=== PATIENT | female | born 1945 | race Caucasian/White ===

== ENCOUNTER 2019-09-17 17:46 | Emergency (ER) | payer MEDICARE, SELFPAY ==
--- NOTE | ~2019-09-17 | XR_ITS ---
EXAMINATION: XR chest 2V DATE: 09/17/2019 19:01 INDICATION: Cough, shortness of breath and wheezing TECHNIQUE: PA and lateral views of the chest were obtained. COMPARISON: Chest radiograph dated 02/04/[address] dated 02/11/2018 FINDINGS: The lungs remain clear with no focal airspace opacities, pulmonary edema, pleural effusion or pneumot horax. The cardiomediastinal silhouette is normal. Thoracic kyphosis with severe spondylosis and assembly department supervisor mariela anterior wedging of a couple mid thoracic vertebral bodies. Cholecystectomy clips in right upper quadrant. IMPRESSION: 1. No acute cardiopulmonary disease. Reviewed, dictated and finalized at location A.
[2019-09-17 18:10] VITALS: BP 140/62; PULSE 86; RESP 18; TEMP 37.8; O2SAT 99
--- NOTE | 2019-09-17 18:42 | ED.GENADULT ---
HPI - General Adult General Chief complaint: Upper Respiratory Infection <AIDAN Carrillo - Last Filed: 09/25/19 01:54> Stated complaint: wheezing/cough <AIDAN Carrillo - Last Filed: 09/25/19 01:54> Time Seen by Provider: 09/17/19 18:42 <AIDAN Carrillo - Last Filed: 09/25/19 01:54> Source: patient and RN notes reviewed <AIDAN Carrillo - Last Filed: 09/25/19 01:54> Mode of arrival: ambulatory <AIDAN Carrillo - Last Filed: 09/25/19 01:54> Limitations: no limitations <AIDAN Carrillo - Last Filed: 09/25/19 01:54> History of Present Illness HPI narrative: 74-year-old female presents with complains of wheezing, dry cough, and chest congestion for the past 14 days. Albuterol inhaler without relief. Constant dry cough. History of Pneumonia. No rhinorrhea. Nasal congestion. No high fevers, drooling, neck or throat swelling. No chest pain or shortness of breath. The patient reports she have not been diagnosed with COVID-19. The patient reports she is not waiting for the results of a COVID-19 lab test. The patient reports she do not have fever, chills, weakness, fatigue, or myalgia. The patient reports she do not have a new or worsening cough or shortness of breath. Denies chest pain. The patient reports she do not have any rhinorrhea, sore throat, nausea, vomiting, abdominal pain, and diarrhea. Tolerating po intake well. Denies recent traveling. Denies concerns for COVID-19 or exposures been home since [id number] order once lifted has started golfing with mask and social distancing, essential household needs, and return home. At this time, patient is not suspected of having COVID-19. Some parts of this dictation were generated by voice recognition software and may contain typographical and/or grammatical inaccuracies. <AIDAN Carrillo - Last Filed: 09/25/19 01:54> Related Data Home medications: Home Medications Medication Instructions Recorded Confirmed omeprazole 20 mg capsule,delayed 20 mg PO DAILY 08/07/19 release Caltrate with Vitamin D3 09/17/19 Glucosamine Chondroitin 09/17/19 L-Lysine 09/17/19 One-A-Day Women's 50 Plus 09/17/19 cyanocobalamin (vitamin B-12) 09/17/19 omega 5-apn-eyn-fish oil [Fish Oil] cap PO 09/17/19 <AIDAN Carrillo - Last Filed: 09/25/19 01:54> Allergies/adverse reactions: Allergies Allergy/AdvReac Type Severity Reaction Status Date / Time JERI Inhibitors Allergy Unknown unknown Verified 08/07/19 08:55 Penicillins Allergy Unknown hives Verified 08/07/19 08:55 <AIDAN Carrillo - Last Filed: 09/25/19 01:54> Review of Systems Review of Systems: Narrative: CONSTITUTIONAL: Denies fever, sweats, chills, fatigue. EYES: Denies visual changes, redness, discharge. ENT: Complains of congestion. Denies rhinorrhea, sore throat, otalgia. CARDIOVASCULAR: Denies chest pain, palpitations, edema. RESPIRATORY: Denies dyspnea. Complains of dry cough, wheezing. GASTROINTESTINAL: Denies abdominal pain, nausea, vomiting, diarrhea. GENITOURINARY: Denies dysuria, hematuria, abnormal discharge. SKIN: Denies rash or itching. MUSCULOSKELETAL: Denies acute back pain, joint pain, or myalgia. NEUROLOGIC: Denies numbness or focal weakness. PSYCHIATRIC: Denies anxiety or depression. All other systems reviewed & are unremarkable except as noted in HPI and below. <AIDAN Carrillo - Last Filed: 09/25/19 01:54> [facility] Past Medical History Medical History: Medical History (Updated 09/18/19 @ 00:01 by Clarissa Boo) Cataract Chronic GERD Dyslipidemia Essential (primary) hypertension Fracture of foot bone, left, closed [place] (obstructive sleep apnea) Osteopenia Tear of meniscus of left knee Tinnitus <AIDAN Carrillo - Last Filed: 09/25/19 01:54> Surgical History Surgical History: Surgical History (Updated 09/17/19 @ 19:04 by Kashif
[2019-09-17] MEDS: predniSONE 20 MG TABLET 60 MG PO (19:04)
[2019-09-17] MEDS: IPRATROPIUM BR 0.02% INH SOLN 0.5 MG/2.5 ML VIAL INHALATION (19:05)
[2019-09-17] MEDS: ALBUTEROL SULFATE NEB 2.5 MG/3 ML INH INHALATION (19:05)
--- NOTE | 2019-09-17 19:55 | PC.NURSE ---
unable to scan medications. given second resp. tx. stated tolerated initial without difficulty.
[2019-09-17 20:43] VITALS: PULSE 81; RESP 16; O2SAT 96
== END 2019-09-17 20:43 | disposition home or self-care (01) ==
PROVIDERS: Emergency Provider Nurse Practitioner Family; PCP Family Medicine
DX: J45.21 Mild intermittent asthma with (acute) exacerbation (principal); K21.9 Gastro-esophageal reflux disease without esophagitis; E78.5 Hyperlipidemia, unspecified; I10 Essential (primary) hypertension; G47.33 Obstructive sleep apnea (adult) (pediatric); M85.80 Other specified disorders of bone density and structure, unspecified site
CPT/HCPCS: 71046; 94640; 99213; G0463; J7512

== ENCOUNTER 2020-09-26 09:52 | Outpatient (CLI) | payer MEDICARE, SELFPAY ==
--- NOTE | ~2020-09-26 | XR_ITS ---
XR knee RT 2V 09/26/2020 10:06 Indication: Right knee pain Procedure: 4 views right knee Comparison: No prior studies for comparison. Findings: Mild osteoarthritis of the right knee. Prominent tibial tuberosity. No fracture or traumati c malalignment. No significant joint effusion. Impression: 1: Mild osteoarthritis of the right knee. Reviewed, dictated and finalized at location A. Impression: 1: Mild osteoarthritis of the right knee.
== END 2020-09-26 09:53 | disposition home or self-care (01) ==
PROVIDERS: PCP Family Medicine; Visit Provider Family Medicine
DX: M25.561 Pain in right knee (principal); M17.11 Unilateral primary osteoarthritis, right knee
CPT/HCPCS: 73560

== ENCOUNTER 2021-06-17 10:53 | Emergency (ER) | payer MEDICARE, SELFPAY ==
--- NOTE | ~2021-06-17 | XR_ITS ---
EXAMINATION: XR chest 2V DATE: 06/17/2021 12:56 INDICATION: Back pain. TECHNIQUE: Frontal and lateral views of the chest were obtained. COMPARISON: Chest 2 views 09/17/2019 FINDINGS: There is mild atelectasis at right lung base. No pleural effusion or pneumothorax. The hear t size is normal. Surgical clips in the right upper quadrant are likely from cholecystectomy. There a re 2 chronic compression fractures in mid thoracic spine with kyphosis. There is severe thoracic spon dylosis. IMPRESSION: 1. Mild atelectasis at right lung base. Reviewed, dictated and finalized at location A. 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
[2021-06-17 11:27] VITALS: BP 134/75; PULSE 85; RESP 20; TEMP 36.8; O2SAT 100
--- NOTE | 2021-06-17 12:38 | ED.GENADULT ---
HPI - General Adult General Chief complaint: Back Pain/Injury Stated complaint: Left back pain Source: patient Mode of arrival: ambulatory Limitations: no limitations History of Present Illness HPI narrative: Patient presents for evaluation of back pain since Saturday of this week. She cannot identify any precipitating cause or injury. Pain is constant, throbbing, rated 9 out of 10 in severity. Pain radiates into the chest. She feels short of breath. Denies cough. She has underlying history of hypertension and hyperlipidemia. She does not smoke. No personal or family history of VTE. She tried taking ibuprofen and tylenol but these did not help. She also tried applying ice but that did not help either. No personal history of [place] or CVA. Related Data Home Medications Medication Instructions Recorded Confirmed Caltrate with Vitamin D3 09/17/19 06/09/21 Glucosamine Chondroitin 09/17/19 06/09/21 L-Lysine 09/17/19 06/09/21 One-A-Day Women's 50 Plus 09/17/19 06/09/21 cyanocobalamin (vitamin B-12) 09/17/19 06/09/21 multivitamin 1 tablet PO DAILY 12/30/20 06/09/21 valsartan 06/17/21 06/17/21 Allergies Allergy/AdvReac Type Severity Reaction Status Date / Time JERI Inhibitors Allergy Unknown unknown Verified 06/17/21 11:24 Penicillins Allergy Unknown hives Verified 06/17/21 11:24 Review of Systems Review of Systems: CONSTITUTIONAL: Denies fever, chills, or sweats. EYES: Denies visual changes, redness, or discharge. ENT: Denies rhinorrhea, congestion, sore throat, or otalgia. CARDIOVASCULAR: Reports chest pain. Denies palpitations, or edema. RESPIRATORY: Reports shortness of breath. Denies cough GASTROINTESTINAL: Denies abdominal pain, nausea, vomiting, or diarrhea. GENITOURINARY: Denies dysuria or hematuria. SKIN: Denies rash or itching. MUSCULOSKELETAL: Reports back pain. Denies joint pain, or myalgia. NEUROLOGIC: Denies headache, numbness, dizziness, or weakness. PSYCHIATRIC: Denies anxiety or depression. [facility] Past Medical History Medical History Cataract Chronic GERD Colon polyp Diverticulosis Dyslipidemia Essential (primary) hypertension Fracture of foot bone, left, closed Hyperlipidemia IFG (impaired fasting glucose) Left knee DJD Obesity [place] (obstructive sleep apnea) Osteopenia Right knee DJD Tear of meniscus of left knee Tinnitus Surgical History Surgical History History of eye surgery cataract surgery and eyelid lift History of knee surgery LT meniscus tear repair Family History Family History Mother Hypertension Family history of Alzheimer's disease Family history of dementia History of stroke Sibling Family history of kidney disease Carcinoma of colon Family history of coronary artery disease Family history of renal failure History of colon cancer Father Family history of lung cancer Social History Social History Social History: Second hand tobacco smoke exposure: Yes (over 30 years ago) Alcohol intake: current Drinks per week: 3 Alcohol use details: Socially Substance use: never Substance use type: does not use Gender identity (if verbalized by the patient): Female Sexual Orientation (if Verbalized by the Patient): Straight or Heterosexual Exam Narrative: GENERAL: Well-appearing, well-nourished, and in no acute distress. HEAD: Normocephalic, atraumatic. EYES: PERRLA and EOMI. ENT: Nares clear, no rhinorrhea or epistaxis. Mucous membranes moist. Oropharynx without tonsillar hypertrophy exudate or other lesions. Bilateral TMs pearly magdaleno nonbulging NECK: Supple. No adenopathy or masses. No carotid bruits or JVD CHEST: Clear to auscultation. No respiratory distress. No wheezes rales or rhonchi
--- NOTE | 2021-06-17 12:39 | ECG_ITS ---
Measurements Intervals [place] Rate: 77 P: 57 TX: 182 QRS: 18 QRSD: 96 T: 38 QT: 378 QTc: 428 Interpretive Statements SINUS RHYTHM NORMAL ECG NO PREVIOUS ECG AVAILABLE FOR COMPARISON Electronically Signed On 06-19-2021 13:46:03 RN NEONATAL by Vasile Baez M.D.
[2021-06-17] MEDS: IBUPROFEN 600 MG TABLET PO (12:59)
== END 2021-06-17 13:34 | disposition home or self-care (01) ==
PROVIDERS: Emergency Provider Nurse Practitioner; PCP Family Medicine
DX: M48.54XA Collapsed vertebra, not elsewhere classified, thoracic region, initial encounter for fracture (principal); E78.5 Hyperlipidemia, unspecified; I10 Essential (primary) hypertension; G47.33 Obstructive sleep apnea (adult) (pediatric); M85.80 Other specified disorders of bone density and structure, unspecified site; K21.9 Gastro-esophageal reflux disease without esophagitis; M17.0 Bilateral primary osteoarthritis of knee
CPT/HCPCS: 71046; 93005; 99213; A9270; G0463

== ENCOUNTER 2021-07-04 08:40 | Outpatient (CLI) | payer MEDICARE, SELFPAY ==
--- NOTE | ~2021-07-04 | MR_ITS ---
EXAMINATION: MR thoracic spine wo con EXAM DATE: 07/04/2021 09:59 INDICATION: M54.6 - Pain in thoracic spine . TECHNIQUE: Multi-sequential, multiplanar MR images of the thoracic spine were obtained without contra st. Sagittal T1, T2, T2 fat saturation, axial T2 weighted images reviewed. There is no prior study for comparison. FINDINGS: There is mild to moderate mid thoracic disc disease, otherwise mild thoracic disc disease. Large lower thoracic vertebral body hemangiomata. The mid thoracic endplate degenerative signal ponce e. The spinal cord signal intensity and intrinsic morphology is normal. Thoracic central canal and ne ural foramen are widely patent. There is mild diffuse thoracic facet arthropathy. Paraspinal soft tis rosas is unremarkable. IMPRESSION: 1. Mild to moderate mid thoracic disc disease. 2. Mild diffuse thoracic facet arthropathy. Reviewed, dictated and finalized at location G.
== END 2021-07-04 08:41 | disposition home or self-care (01) ==
LOC: ANHIMG 08:55
PROVIDERS: PCP Family Medicine; Visit Provider Physician Assistant
DX: M54.6 Pain in thoracic spine (principal); M51.84 Other intervertebral disc disorders, thoracic region; M12.88 Other specific arthropathies, not elsewhere classified, other specified site
CPT/HCPCS: 72146

== ENCOUNTER 2022-01-17 07:55 | Outpatient (CLI) | payer MEDICARE, SELFPAY ==
[2022-01-17 09:55] LABS: Appearance Urine Clear (Clear); Bilirubin Urine Negative (Negative); Blood Urine Negative (Negative); Color Urine Yellow (Yellow); Glucose Urine UA Negative (Negative); Ketones Urine Negative (Negative); Leukocyte Esterase Ur 1+ LEU/UL (Negative); Nitrate Urine Negative (Negative); Protein Urine Negative (Negative); Specific Grav Ur 1.025 (1.001-1.035); Urobilinogen Urine 0.2 mg/dL (<2.0)
[2022-01-17 09:56] LABS: Basophils Percent Auto 0.1 % (0.2-1.2); Hematocrit 38.7 % (37.0-47.0); Hemoglobin 12.6 g/dL (12.0-15.0); Immature Granulocyte Absolute 0.15 K/mm3 (0.00-0.031); Immature Granulocyte Percent A 0.7 % (0-0.5); Lymphocytes Percent Auto 9.9 % (18.3-44.2); Mean Corpuscular HGB Conc 32.6 g/dl (32-36); Mean Corpuscular Hemoglobin 30.1 pg (26-34); Mean Corpuscular Volume 92.6 fl (80-100); Mean Platelet Volume 9.2 fl (7.4-10.4); Monocytes Absolute Auto 1.4 K/mm3 (0.1-0.6); Monocytes Percent Auto 7.1 % (2.6-8.5); Neutrophils Absolute Auto 16.5 K/mm3 (1.3-6.7); Neutrophils Percent Auto 82.2 % (45.5-73.1); Platelet Count Result 490 k/mm3 (150-375); Red Blood Count 4.18 M/mm3 (4.2-5.4); Red Cell Distribution Width 13.9 % (11.5-14.5); White Blood Count 20.1 K/mm3 (4.5-10.0)
[2022-01-17 10:03] LABS: Albumin Level 4.3 g/dL (3.5-5.1); Anion Gap 10 mmol/L (8-16); Blood Urea Nitrogen 20 mg/dL (7-17); Carbon Dioxide 24 mmol/L (22-30); Chloride 107 mmol/L (98-107); Estimated Glomerular Filt Rate > 60; Glucose 90 mg/dL (65-110); Potassium 3.7 mmol/L (3.4-5.0); Sodium 141 mmol/L (137-145)
[2022-01-17 10:04] LABS: INR 1.1; Prothrombin Time 13.3 Seconds (11.1-14.7)
[2022-01-17 10:07] LABS: Add Urine Microscopic? YES
[2022-01-17 10:17] LABS: RBC Urine 0-2 /hpf (0-2); Squamous Epithelial Cell Urine Occasional /hpf (Few); WBC Urine 21-30 /hpf
[2022-01-17 13:05] LABS: Urine Cotinine NEGATIVE
== END 2022-01-17 07:56 | disposition home or self-care (01) ==
LOC: ANHSURGERY 08:01
PROVIDERS: PCP Family Medicine; Visit Provider Orthopaedic Surgery
DX: Z01.818 Encounter for other preprocedural examination (principal); M17.12 Unilateral primary osteoarthritis, left knee; Z51.81 Encounter for therapeutic drug level monitoring; Z79.899 Other long term (current) drug therapy
CPT/HCPCS: 80048; 80307; 81001; 82040; 83036; 85025; 85610; 85730; 87081; 87086; 87088

== ENCOUNTER 2022-01-25 10:11 | Outpatient (CLI) | payer MEDICARE, SELFPAY ==
--- NOTE | ~2022-01-25 | XR_ITS ---
XR chest 2V 01/25/2022 11:05 Indication: Surgery clearance. Reflux. Hypertension. Procedure: PA and lateral views of the chest Comparison: Comparison to multiple prior studies sequentially, with oldest reviewed study dated 06/09. Findings: Heart size normal. There is atherosclerosis and ectasia of the thoracic aorta. No focal air space disease, pulmonary edema, pleural effusion or suspected pneumothorax. The lungs are hyperinfla gina which is consistent with, but not diagnostic of chronic obstructive pulmonary disease. Impression: 1: No acute cardiopulmonary disease. Reviewed, dictated and finalized at location A. Impression: 1: No acute cardiopulmonary disease.
[2022-01-25 11:28] LABS: Basophils Absolute Auto 0.1 K/mm3 (0.0-0.1); Basophils Percent Auto 0.7 % (0.2-1.2); Eosinophils Absolute Auto 0.2 K/mm3 (0-0.3); Eosinophils Percent Auto 2.3 % (0-4.4); Hematocrit 39.7 % (37.0-47.0); Hemoglobin 12.7 g/dL (12.0-15.0); Immature Granulocyte Absolute 0.04 K/mm3 (0.00-0.031); Immature Granulocyte Percent A 0.5 % (0-0.5); Lymphocytes Absolute Auto 2.15 K/mm3 (0.9-3.2); Lymphocytes Percent Auto 24.5 % (18.3-44.2); Mean Corpuscular Hemoglobin 29.7 pg (26-34); Mean Corpuscular Volume 92.8 fl (80-100); Mean Platelet Volume 9.2 fl (7.4-10.4); Monocytes Absolute Auto 0.9 K/mm3 (0.1-0.6); Monocytes Percent Auto 10.5 % (2.6-8.5); Neutrophils Absolute Auto 5.4 K/mm3 (1.3-6.7); Neutrophils Percent Auto 61.5 % (45.5-73.1); Platelet Count Result 454 k/mm3 (150-375); Red Blood Count 4.28 M/mm3 (4.2-5.4); White Blood Count 8.8 K/mm3 (4.5-10.0)
[2022-01-25 11:33] LABS: Add Urine Microscopic? YES; Appearance Urine Clear (Clear); Bilirubin Urine Negative (Negative); Blood Urine Negative (Negative); Color Urine Yellow (Yellow); Glucose Urine UA Negative (Negative); Ketones Urine Negative (Negative); Leukocyte Esterase Ur 1+ LEU/UL (Negative); Mucus Urine Rare /lpf; Nitrate Urine Negative (Negative); Protein Urine Negative (Negative); RBC Urine 0-2 /hpf (0-2); Specific Grav Ur 1.012 (1.001-1.035); Squamous Epithelial Cell Urine Rare /hpf (Few); Urobilinogen Urine Negative mg/dL (<2.0)
== END 2022-01-25 10:12 | disposition home or self-care (01) ==
PROVIDERS: PCP Family Medicine; Visit Provider Physician Assistant
DX: Z01.818 Encounter for other preprocedural examination (principal); N39.0 Urinary tract infection, site not specified; D72.829 Elevated white blood cell count, unspecified
CPT/HCPCS: 36415; 71046; 81001; 85025; 87086; 87088; 87147

== ENCOUNTER 2022-01-31 00:21 | Day surgery (SDC) | payer MEDICARE, SELFPAY ==
[2022-01-17 08:09] VITALS: BMI 33.3
--- NOTE | 2022-01-17 08:36 | PC.NURSE ---
Addendum entered by Araseli Puri RN 01/17/22 08:46: SURGERY AT 0800 Original Note: Report to the Outpatient Waiting Room, entrance under the green pavilion located off [address], at time _0600 on date ___01/31/22____. OR Time: __0730 . Time changes happen often and if your time is changed the preop area will call you the afternoon before. - You and your visitor will be asked to self-screen and do not enter if you have any COVID symptoms. - Only one visitor and NO children visitors are allowed at this time. - The patient visitor is requested to leave or wait in car when not with patient due to restrictions. - A mask is required within the hospital. Patients may have clear liquids (water, carbonated beverages, clear teas, apple juice) until 3 hours prior to surgery with a maximum of 20 ounces. - No food from midnight until time of surgery - Infants may have breast milk until 4 hours before surgery, formula 6 hours prior to surgery. - Children will be allowed to drink immediately following surgery. If applicable, please bring a bottle or sippy cup to assist with drinking. Juice, water, soda, and popsicles are readily available. For infants on formula, please bring formula the day of surgery. Pacifiers are allowed. Take the following medications with a SIP of water the morning of surgery: __NONE Medications to discontinue per physician _PATIENT TO CALL DR WEAVER REGARDING IBUPROFEN. ALL VITAMINS AND SUPPLEMENTS 3 DAYS PREOP Date to take last dose__01/27/22 Please no make-up, nail sammarinese, hairspray, perfume, deodorant, or body powder the day of surgery. No jewelry (including any body piercings) or valuables the day of surgery, leave them at home. Please take a shower or bath the night before, or the morning of, surgery with an antibacterial soap. Wear comfortable, loose fitting clothing. Children are encouraged to wear pajamas. - Jewelry must be removed prior to entering the operating room. Rings and piercings that are not removed may be cut off. - The hospital will not accept responsibility for valuables. - Please leave all valuables, including medications, at home the day of surgery. If you are going home after surgery, a licensed power truck driver must drive you home. *TOTAL JOINT CLASS 01/17/22 AT 10 AM - NO public transportation without another adult. - We recommend that an adult stay with you for 24 hours following discharge. - We also recommend that you do not drive, make important decision, drink alcoholic beverages, or take any drugs that were not prescribed by your health care provider for at least 24 hours after your discharge time. For Pediatric surgeries, we recommend two adults accompany the child home (only one inside the building at this time). Follow any additional instructions given to you from your surgeon. If you or anyone in your household have experienced Covid symptoms in the past week, please notify your surgeon or the nurse liaison at the phone number below for possible testing. VERBAL AND WRITTEN instructions given to __PATIENT and asked if any additional questions and then verbalized understanding. Patient advised to call surgeon office or pre surgery nurse liaison [phone] if any additional questions.
[2022-01-17 08:56] VITALS: BP 145/66; PULSE 70; RESP 18; TEMP 37.2; O2SAT 99
--- NOTE | 2022-01-30 16:30 | WPDANESEPPF ---
Anes - Initial Pre Proc Eval Procedure: Operation Date: 01/31/22 08:00 Proposed Procedures p Left Total Knee Arthroplasty - Kirill Pittman MD Date/Time: 01/30/22 16:30 Surgeon: Kirill Pittman MD Pre Op Diagnosis: left knee djd Patient Data Age: 76 Gender: F Height: 1.65 m Weight: 91 kg Last Vital Signs Temp 37.2 C 01/17/22 08:56 Pulse 70 01/17/22 08:56 Resp 18 01/17/22 08:56 BP 145/66 H 01/17/22 08:56 Pulse Ox 99 01/17/22 08:56 O2 Del Method Room Air 01/17/22 08:56 Allergies Allergy/AdvReac Type Severity Reaction Status Date / Time JERI Inhibitors Allergy Unknown Cough Verified 01/31/22 06:57 Penicillins Allergy Unknown hives Verified 01/31/22 06:57 Home Medications Medication Instructions Recorded Confirmed Type Caltrate with Vitamin D3 1 tab-cap PO DAILY 09/17/19 01/31/22 History Glucosamine Chondroitin 1 tab-cap PO DAILY 09/17/19 01/31/22 History L-Lysine 1 tab-cap PO DAILY 09/17/19 01/31/22 History One-A-Day Women's 50 Plus 1 tab-cap PO DAILY 09/17/19 01/31/22 History cyanocobalamin (vitamin B-12) 1 tab-cap PO DAILY 09/17/19 01/31/22 History omeprazole 20 mg capsule,delayed 20 mg PO DAILY #90 caps 10/24/20 01/31/22 Rx release lovastatin 20 mg tablet 20 mg PO DAILY #90 tabs 05/16/21 01/31/22 Rx valsartan 160 mg tablet 160 mg PO DAILY #90 tabs 10/02/21 01/31/22 Rx valacyclovir 1 gram tablet See Rx Instructions .Route 11/20/21 01/31/22 Rx .COMPLEX #12 tabs chlorhexidine gluconate 4 % 1 applic topical ONCE #237 mL 01/15/22 01/31/22 Rx topical liquid (Hibiclens) albuterol sulfate 90 mcg/actuation 2 puff inhalation PRN PRN 01/17/22 01/31/22 History aerosol inhaler (ProAir HFA) Shortness Of Breath ibuprofen 600 mg tablet 600 mg PO Q6H PRN Pain 01/17/22 01/31/22 History amlodipine 5 mg tablet 5 mg PO HS 01/26/22 01/31/22 History Patient hx anesthesia problems: none Family hx anesthesia problems: none Results Review: All pre-operative results and documents have been reviewed as part of the pre-operative evaluation. [facility] Past Medical History Medical History Cataract Chronic GERD Colon polyp Diverticulosis Dyslipidemia Essential (primary) hypertension Fracture of foot bone, left, closed Hyperlipidemia IFG (impaired fasting glucose) Left knee DJD Obesity [place] (obstructive sleep apnea) Osteopenia Right knee DJD Tear of meniscus of left knee Tinnitus Surgical History Surgical History (Updated 01/30/22 @ 16:31 by Aram Lopez DO) History of eye surgery cataract surgery and eyelid lift History of hysterectomy History of knee surgery LT meniscus tear repair Family History Family History Mother Hypertension Family history of Alzheimer's disease Family history of dementia History of stroke Sibling Family history of kidney disease Carcinoma of colon Family history of coronary artery disease Family history of renal failure History of colon cancer Father Family history of lung cancer Social History Social History Social History: Smoking status: Never smoker Second hand tobacco smoke exposure: Yes (over 30 years ago) Additional smoking assessment comments: DENIES ANY FORM OF TOBACCO USE Alcohol intake: current Drinks per week: 3 Alcohol use details: Socially Substance use: never Substance use type: does not use Living arrangements: with family Gender identity (if verbalized by the patient): Female Sexual Orientation (if Verbalized by the Patient): Straight or Heterosexual Spiritual care concerns: No Anes - Eval Final PreProcedure Day of Procedure 01/30/22 16:30 Patient weight: obese Heart: regular rate and rhythm Lungs: clear to auscultation Airway: Mallampati scale class II Neurological: alert and oriented Last oral intak
[2022-01-31] VITALS (14 sets, daily range): BP systolic 106–146; BP diastolic 60–72; PULSE 72–97; RESP 14–20; TEMP 36.3–37; O2SAT 94–100; BMI 33.0
--- NOTE | ~2022-01-31 | XR_ITS ---
EXAMINATION: XR knee LT 2V DATE: 01/31/2022 11:18 INDICATION: Total left knee arthroplasty. Postop. TECHNIQUE: 2 views of left knee were obtained. COMPARISON: Left knee radiographs 01/15/2022 FINDINGS: There is a total left knee arthroplasty without patellar resurfacing in near-anatomic align ment. No fracture. There is gas in the soft tissues, consistent with recent surgery. Anterior skin st aples are noted. IMPRESSION: 1. Total left knee arthroplasty in near-anatomic alignment. Reviewed, dictated and finalized at location B.
[2022-01-31] MEDS: LACTATED RINGERS 1,000 ML 30 ML IV CONT ×2 (06:53→11:00)
[2022-01-31] MEDS: ACETAMINOPHEN 500 MG TABLET 1000 MG PO (06:54)
[2022-01-31] MEDS: TRANEXAMIC ACID 1,000MG/ISO100 1,000 MG/100 ML BAG 200 MG IVPB (06:54)
--- NOTE | 2022-01-31 07:22 | WPDANESPNB ---
Anes - Peripheral Nerve Block Date/Time: 01/31/22 07:22 I have discussed with the patient/family/POA the placement of a peripheral nerve block for post-operative pain management, including associated risks, benefits, complications, and side effects. Alternative methods of post-operative analgesia were detailed. Questions were solicited and answers provided to the satisfaction of the patient/family/POA. Time-Out: A pre-procedural Time-Out was completed immediately before starting the procedure and confirmed: Patient Identification, Site, Procedure, Patient Position and the Availability of Requisite Equipment. Clinical Indications: Acute post-operative pain management requested by the operative surgeon. Nerve Block Insertion Note Anes-nerve block: adductor canal left Patient position: supine Skin prep: chlorhexidine Needle: 22 gauge, stimulating, insulated echogenic needle. Needle length: 80 mm Technique: ultrasound Injectate: bupivacaine 0.5% with epi 5 mcg/ml (30cc - no epi) Observations: tolerated well Complications: none Procedure start time:: 737 Procedure end time:: 740
--- NOTE | 2022-01-31 07:25 | WPDHPUPDATE1 ---
History and Physical Update Update Date/Time: 01/31/22 07:25 History and Physical has been reviewed, including an updated exam of the patient. There are NO changes in the patient's condition. Risks, benefits, and alternatives have been discussed and questions answered. Patient agrees to proceed with procedure.
[2022-01-31] MEDS: ceFAZolin 2 GM/D5W 50 ML 2 GM/50 ML BAG IVPB ×3 (07:43→22:29)
[2022-01-31] MEDS: GENTAMICIN BONE CEMENT REFOBACIN 1 EACH TOPICAL (08:53)
--- NOTE | 2022-01-31 11:49 | P.OP_ITS ---
Procedure Note - Detailed Date of Procedure 01/31/22 Pre-op Diagnosis left knee djd Post-op Diagnosis Same Procedure Performed L TKA Surgeon Kirill Pittman MD Anesthesia General Description of Procedure THE LEFT KNEE WAS PREPPED AND DRAPED IN THE STERILE FASHION. THERE WAS A 5 DEGREE FLEXION CONTRACTURE. A MIDLINE SKIN INCISION WAS MADE. A MEDIAL PARAPATELLAR ARTHROTOMY WAS MADE. THE PATELLA WAS EVERTED. THERE WAS TRICOMPARTMENT DJD. THERE WAS MINIMAL PATELLA DJD. AN INTRAMEDULLARY HEATH WAS PLACED IN THE FEMUR. A DISTAL FEMORAL CUT WAS MADE IN 5 DEGREES OF VALGUS REMOVING APPROXIMATELY 9 MM OF BONE FROM THE DISTAL FEMUR. THE FEMUR WAS SIZED TO 62.5. A 62.5 FEMORAL CUTTING BLOCK WAS PLACED IN 3 DEGREES OF EXTERNAL ROTATION AND IN ALIGNMENT WITH TIN'S LINE AND THE TRANSEPICONDYLAR AXIS. ANTERIOR POSTERIOR AND CHAMFER CUTS WERE MADE. THE CUTS WERE EXCELLENT. NEXT AN INTRAMEDULLARY CUTTING GUIDE WAS PLACED IN THE TIBIA. A TRANS TIBIAL CUT WAS MADE ALONG THE LONG AXIS OF THE TIBIA. APPROXIMATELY 10 MM OF BONE WAS REMOVED FROM THE HIGH SIDE OF THE TIBIA. THE TIBIA WAS THEN PLANED TO A SMOOTH SURFACE. POSTERIOR FEMORAL OSTEOPHYTES WERE REMOVED FROM THE FEMORAL CONDYLES. A 71 TIBIAL TRIAL WAS PLACED IN ALIGNMENT WITH THE 1/3 MEDIAL ASPECT OF THE TIBIAL TUBERCLE. THEN A 62.5 FEMORAL PS CUTTING BLOCK WAS PLACED. THE BOX CUT WAS PREFORMED. A PS 62.5 FEMORAL TRIAL WAS PLACED WITH A 10 MM PS POLY TRIAL. BOTH HAD EXCELLENT FITS. THE KNEE WAS TAKEN THROUGH A RANGE OF MOTION. THE KNEE CAME OUT TO FULL EXTENSION. THERE WAS NO ABNORMAL TILT TO THE PATELLA. THERE WAS GOOD A/P AND VARUS/VALGUS STABILITY. THERE WAS NO EXCESSIVE ROLL BACK WITH FLEXION. THE TRIAL COMPONENTS WERE REMOVED. THEN A 62.5 PS FEMORAL COMPONENT AND 71 TIBIAL COMPONENT WITH A 10 PS POLYETHYLENE COMPONENT WERE CEMENTED INTO PLACE. ONCE THE CEMENT WAS HARD THE KNEE WAS TAKEN THROUGH A ROM AGAIN AND FOU ND TO BE STABLE WITH NO PATELLA TILT NO EXCESSIVE ROLL BACK WITH FLEXION AND GOOD STABILITY WITH COMPLETE AND FULL EXTENSION. THE KNEE WAS IRRIGATED WITH STERILE BETADINE AND WATER FOR ABOUT 3 MINUTES. THE BLEEDERS WERE CAUTERIZED. THE ARTHROTOMY WAS REPAIRED WITH NUMBER 1 VICRYL. THE SUB CUTANEOUS LAYER WITH 2-0 VICRYL AND THE SKIN WITH AGUSTIN. THE WOUND WAS WASHED AND A STERILE DRESSING WAS APPLIED. PATIENT WAS EXTUBATED. Estimated Blood Loss -200.0 Pathology None sent Complications No immediate complications Condition Stable Disposition PACU
[2022-01-31] MEDS: fentaNYL CITRATE INJ (*CRX) 100 MCG/2 ML VIAL 25 MCG IV PUSH ×2 (12:33→12:36)
--- NOTE | 2022-01-31 13:20 | ADMGEN ---
This patient, Padmini Jara, was admitted to Medical Room 345-01. Patient/family oriented to hospital policies and general routines including ID bracelet, bed and alarms, visiting hours, pain management, procedures, bathroom and other care routines, personal items, smoking policy, room service/diet, and visiting hours. Information on how to activate the Rapid Response Team has been discussed. Patient/Family are encouraged to report perceived risks to care and to ask questions if they do not understand what they are told or what they should do.
[2022-01-31] MEDS: oxyCODONE/ACETAMINOPHEN (*CRX) 5-325 MG TABLET 1 TABLET PO ×2 (15:20→22:28)
[2022-01-31] MEDS: SENNA/DOCUSATE SODIUM TABLET 2 TAB PO (17:26)
[2022-01-31] MEDS: CELECOXIB 200 MG CAPSULE PO (17:26)
[2022-01-31] MEDS: VALSARTAN 160 MG TABLET PO (20:25)
[2022-01-31] MEDS: amLODIPine BESYLATE 5 MG TABLET PO (20:25)
[2022-01-31] MEDS: ASPIRIN 325 MG ENTERIC TABLET PO (20:25)
[2022-02-01 00:28] VITALS: PULSE 82; O2SAT 96
[2022-02-01] MEDS: ceFAZolin 2 GM/D5W 50 ML 2 GM/50 ML BAG IVPB (05:47)
[2022-02-01] MEDS: oxyCODONE/ACETAMINOPHEN (*CRX) 5-325 MG TABLET 1 TABLET PO ×2 (05:48→18:02)
[2022-02-01 05:49] LABS: Basophils Percent Auto 0.2 % (0.2-1.2); Eosinophils Percent Auto 0.1 % (0-4.4); Hematocrit 32.3 % (37.0-47.0); Hemoglobin 10.5 g/dL (12.0-15.0); Immature Granulocyte Absolute 0.08 K/mm3 (0.00-0.031); Immature Granulocyte Percent A 0.6 % (0-0.5); Lymphocytes Absolute Auto 1.58 K/mm3 (0.9-3.2); Lymphocytes Percent Auto 11.6 % (18.3-44.2); Mean Corpuscular HGB Conc 32.5 g/dl (32-36); Mean Corpuscular Hemoglobin 30.5 pg (26-34); Mean Corpuscular Volume 93.9 fl (80-100); Mean Platelet Volume 9.1 fl (7.4-10.4); Monocytes Percent Auto 14.8 % (2.6-8.5); Neutrophils Absolute Auto 9.9 K/mm3 (1.3-6.7); Neutrophils Percent Auto 72.7 % (45.5-73.1); Platelet Count Result 364 k/mm3 (150-375); Red Blood Count 3.44 M/mm3 (4.2-5.4); Red Cell Distribution Width 13.8 % (11.5-14.5); White Blood Count 13.6 K/mm3 (4.5-10.0)
[2022-02-01 05:53] VITALS: BP 121/60; PULSE 88; RESP 16; TEMP 37.1; O2SAT 97
[2022-02-01 06:00] LABS: Anion Gap 6 mmol/L (8-16); Blood Urea Nitrogen 14 mg/dL (7-17); Calcium 8.6 mg/dL (8.4-10.2); Carbon Dioxide 24 mmol/L (22-30); Chloride 106 mmol/L (98-107); Estimated CRCL calculation 45 ml/min; Estimated Glomerular Filt Rate 54; Glucose 127 mg/dL (65-110); Potassium 3.7 mmol/L (3.4-5.0); Sodium 136 mmol/L (137-145)
--- NOTE | 2022-02-01 07:54 | WPDANESPN ---
Anes - Prog Note Post-Op Date/Time: 02/01/22 07:54 Cardiovascular status: normal Respiratory status: normal Airway patency: baseline Mental status: baseline Post-Op hydration status: normal Vital Signs: Last Vital Signs Temp 37.1 C 02/01/22 05:53 Pulse 88 02/01/22 05:53 Resp 16 02/01/22 05:53 BP 121/60 02/01/22 05:53 Pulse Ox 97 02/01/22 05:53 O2 Del Method CPAP 02/01/22 00:28 O2 Flow Rate 01/31/22 11:15 Pain Score (VAS): 0 I/O: Intake & Output 01/31/22 01/31/22 02/01/22 15:59 23:59 07:59 Intake Total 150 290 50 Balance 150 290 50 Laboratory Tests 02/01/22 05:27 02/01/22 05:27 01/31/22 02/01/22 02/01/22 06:52 05:27 05:27 WBC 13.6 H RBC 3.44 L Hgb 10.5 L Hct 32.3 L MCV 93.9 MCH 30.5 MCHC 32.5 RDW 13.8 Plt Count 364 MPV 9.1 Immature Gran % (Auto) 0.6 H Neut % (Auto) 72.7 Lymph % (Auto) 11.6 L [place] % (Auto) 14.8 H Eos % (Auto) 0.1 Baso % (Auto) 0.2 Lymph # (Auto) 1.58 [place] # (Auto) 2.0 H Eos # (Auto) 0.0 Baso # (Auto) 0.0 Abs Immat Gran (auto) 0.08 H Absolute Neuts (auto) 9.9 H Absolute Nucleated RBC 0.0 Nucleated RBC % 0.0 Sodium 136 L Potassium 3.7 Chloride 106 Carbon Dioxide 24 Anion Gap 6 L BUN 14 D Creatinine 1.00 Estim Creat Clear Calc 45 Estimated GFR 54 L Glucose 127 H Calcium 8.6 Antibody Screen Negative Post-procedural complaints: none Patient Feedback: Patient satisfied with anesthetic care.
[2022-02-01] MEDS: LOVASTATIN 20 MG TABLET PO (08:28)
[2022-02-01] MEDS: PANTOPRAZOLE 40 MG TABLET PO (08:28)
[2022-02-01] MEDS: CELECOXIB 200 MG CAPSULE PO ×2 (08:28→16:51)
[2022-02-01] MEDS: polyethylene glycoL 3350 17 GM POWD.PACK PO (08:28)
[2022-02-01] MEDS: SENNA/DOCUSATE SODIUM TABLET 2 TAB PO ×2 (08:28→16:51)
[2022-02-01] MEDS: CYANOCOBALAMIN 1,000 MCG TABLET 1000 MCG PO (08:28)
[2022-02-01] MEDS: ASPIRIN 325 MG ENTERIC TABLET PO (08:28)
--- NOTE | 2022-02-01 09:30 | PM.PNORT ---
Progress Note: A&P Assessment and Plan (1) S/P total knee arthroplasty: Qualifiers: Laterality: left Qualified Code(s): Z96.652 - Presence of left artificial knee joint Code(s): Z96.659 - Presence of unspecified artificial knee joint Status: Acute Assessment and Plan: POD #1 : Left TKA Continue PT/OT. WBAT. Walker. HIGH FALL RISK. Continue pain control. Ice Knee. Protect skin. DVT prophylaxis with Aspirin. SCDs. Incentive Spirometry Use reviewed. Monitor Dressing. Change prior to discharge. Bowel Regimen. Dispo: Home with Home Health pending progress with PT/OT Plan Reviewed postoperative labs, images and assessment with attending MD Dr. Pittman. Agrees with current plan of care. No further recommednations. Subjective Subjective Date/Time Seen: 02/01/22 09:30 Post Op day: 1 Principal diagnosis: Left Knee DJD Interval history: POD #1: Left TKA Patient doing well. Pain well controlled. No new concerns. Review of Systems Review of Systems: All systems reviewed & are unremarkable except as noted in HPI and below Constitutional: Constitutional: Denies fever(s) and Denies headache(s) Cardiovascular: Cardiovascular: Denies chest pain, Denies diaphoresis, Denies palpitations and Denies dyspnea Respiratory: Respiratory: Denies dyspnea Gastrointestinal: Gastrointestinal: Denies abdominal pain, Denies constipation, Denies nausea and Denies vomiting Genitourinary: Genitourinary: Reports nocturia and Denies dysuria Musculoskeletal: Musculoskeletal: Reports arthralgias (Left Knee ), Reports joint swelling (Left Knee ) and Reports limited range of motion (ROM limited due to recent surgical intervention LEFT Knee ) Neurologic: Denies headache(s) Endocrine: Endocrine: Denies palpitations Exam Const: General: comfortable and no acute distress Resp: Effort & Inspection: normal respiratory effort Cardio: Rate: regular rate Rhythm: regular rhythm GI: GI Palp: Yes Soft to palpation, No Tenderness to palpation present (GI) and No Guarding due to palpation present (GI) Skin: General skin exam: wounds noted (see extremity assessment ) Wounds: wounds noted (see extremity assessment ) Neuro: Cognition (Neuro): normal cognition Other: NV intact aside from block. Moves toes. Sensation intact to light touch. +ankle dorsiflexion/plantarflexion. Extrem: Left lower extremity: normal to inspection, normal capillary refill, knee Details: tenderness (diffuse ) Location: of the patella, swelling (moderate consistent to recent surgery ), abnormal ROM (limited due to recent surgery ) Details: pain with active ROM and pain with passive ROM and ecchymosis (as expected with recent surgery. NO hematoma. ), lower leg (Negative Barbara's Sign ), ankle (+ankle dorsiflexion/plantarflexion ) Details: normal to inspection, no edema and normal ROM; no tenderness and no swelling and foot Details: normal capillary refill, toes with normal ROM, vascular exam Details: dorsalis pedis pulse present and motor-sensory exam light-touch normal; no tenderness Other: Incision left TKA dressing c/d/i. No hematoma. No signs of infection. No wound dehiscence. Psych: Mental Status: mental status grossly normal Objective Data Vital Signs Vital Signs: Vital Signs - 24 hr 01/31/22 11:00 01/31/22 11:15 01/31/22 11:30 Temperature 36.7 C Pulse Rate 80 72 79 Respiratory Rate 14 20 18 Blood Pressure 106/60 119/61 129/61 Pulse Oximetry 99 100 98 Oxygen Delivery Simple Face Mask Simple Face Mask Room Air Oxygen Flow Rate 10 10 01/31/22 11:45 01/31/22 12:00 01/31/22 12:15 Temperature Pulse Rate 78 79 76 Respiratory Rate 16 18 16 Blood Pressure 130/62 146/66 H 122/72 Pulse Oximetry 95 94 95 Oxygen Delivery Room Air Room Air Room Air Oxygen Flow Rate 01/31/22 12:30 01/31/22 13:00 01/31/22 13:15 Temperature 36.7 C 36.3 C L Pulse Rate 75 76 77 Respiratory Rate 16 16 16 Blood Pressure 134/67 136/6
--- NOTE | 2022-02-01 11:35 | PCOTNOTE ---
Attempted to see patient this am, however patient refused due to increased pain. I'm trying to hold off on my pain medicine until 12:15, because I have PT coming at 1:00. I just got up a little bit ago, and I about . I really want to shower though, if you can come back after PT.
[2022-02-01] MEDS: oxyCODONE/ACETAMINOPHEN (*CRX) 5-325 MG TABLET 2 TABLET PO (11:54)
[2022-02-01 14:00] VITALS: BP 123/53; PULSE 87; RESP 18; TEMP 36.4; O2SAT 97
[2022-02-01 14:33] VITALS: O2SAT 97
--- NOTE | 2022-02-01 15:08 | PM.DS ---
DS: Admitting Diagnosis Discharge Date 02/01/22 Admitting Diagnosis Left Knee DJD DS: Discharge Diagnosis Discharge Diagnosis (1) S/P total knee arthroplasty: Qualifiers: Laterality: left Qualified Code(s): Z96.652 - Presence of left artificial knee joint Code(s): Z96.659 - Presence of unspecified artificial knee joint Status: Acute Assessment and Plan: POD #1 : Left TKA Continue PT/OT. WBAT. Walker. HIGH FALL RISK. Continue pain control. Ice Knee. Protect skin. DVT prophylaxis with Aspirin. SCDs. Incentive Spirometry Use reviewed. Monitor Dressing. Change prior to discharge. Bowel Regimen. Dispo: Home with Home Health pending progress with PT/OT Plan Reviewed postoperative labs, images and assessment with attending MD Dr. Pittman. Agrees with current plan of care. No further recommednations. DS: Summary Hospital Course Reason for hospitalization: Left TKA Hospital Course: 76 year old female admitted s/p LEFT TKA for postoperative medical management, paint control and mobilization with PT/OT. Patient progressed well with PT/OT. Pain and vitals stable throughout. She have been cleared to be discharged home with home health at this time. Follow up planned for 3 weeks in the outpatient orthopedic clinic with Dr. Pittman. Status at Discharge Functional status at discharge: uses cane/walker Overall status at discharge: patient is progressing back to baseline Time Spent with Patient Time attestation: Total time spent providing and/or coordinating discharge services: Exam Const: General: comfortable and no acute distress Resp: Effort & Inspection: normal respiratory effort Cardio: Rate: regular rate Rhythm: regular rhythm Skin: General skin exam: wounds noted (see extremity assessment ) Wounds: wounds noted (see extremity assessment ) Neuro: Cognition (Neuro): normal cognition Other: NV intact aside from block. Moves toes. Sensation intact to light touch. +ankle dorsiflexion/plantarflexion. Extrem: Left lower extremity: normal to inspection, normal capillary refill, knee Details: tenderness (diffuse ) Location: of the patella, swelling (moderate consistent to recent surgery ), abnormal ROM (limited due to recent surgery ) Details: pain with active ROM and pain with passive ROM and ecchymosis (as expected with recent surgery. NO hematoma. ), lower leg (Negative Barbara's Sign ), ankle (+ankle dorsiflexion/plantarflexion ) Details: normal to inspection, no edema and normal ROM; no tenderness and no swelling and foot Details: normal capillary refill, toes with normal ROM, vascular exam Details: dorsalis pedis pulse present and motor-sensory exam light-touch normal; no tenderness Other: Incision left TKA dressing c/d/i. No hematoma. No signs of infection. No wound dehiscence. Psych: Mental Status: mental status grossly normal DS: Data Data Completed and Pending Labs on day of discharge: Labs from last 24 hours 02/01/22 02/01/22 05:27 05:27 WBC 13.6 H RBC 3.44 L Hgb 10.5 L Hct 32.3 L MCV 93.9 MCH 30.5 MCHC 32.5 RDW 13.8 Plt Count 364 MPV 9.1 Immature Gran % (Auto) 0.6 H Neut % (Auto) 72.7 Lymph % (Auto) 11.6 L [place] % (Auto) 14.8 H Eos % (Auto) 0.1 Baso % (Auto) 0.2 Lymph # (Auto) 1.58 [place] # (Auto) 2.0 H Eos # (Auto) 0.0 Baso # (Auto) 0.0 Abs Immat Gran (auto) 0.08 H Absolute Neuts (auto) 9.9 H Absolute Nucleated RBC 0.0 Nucleated RBC % 0.0 Sodium 136 L Potassium 3.7 Chloride 106 Carbon Dioxide 24 Anion Gap 6 L BUN 14 D Creatinine 1.00 Estim Creat Clear Calc 45 Estimated GFR 54 L Glucose 127 H Calcium 8.6 Discharge Plan Discharge Patient Disposition: Home Health Service Discharge Instructions: Post Op Total Knee Replacement Instructions Dr. Kirill Pittman [phone] Your dressing will be changed prior to your discharge. You will be sent home with one additional dres
== END 2022-02-01 18:46 | disposition home health service (06) ==
LOC: ANHSURGERY 05:48 → ANH3MED 12:51
PROVIDERS: PCP Family Medicine; Visit Provider Orthopaedic Surgery
PROC: (CPT 27447; principal; 2022-01-31 08:00)
DX: M17.12 Unilateral primary osteoarthritis, left knee (principal); G89.18 Other acute postprocedural pain; I10 Essential (primary) hypertension; E78.5 Hyperlipidemia, unspecified; K21.9 Gastro-esophageal reflux disease without esophagitis; G47.33 Obstructive sleep apnea (adult) (pediatric); M85.80 Other specified disorders of bone density and structure, unspecified site; Z79.51 Long term (current) use of inhaled steroids; E66.9 Obesity, unspecified; Z68.33 Body mass index [BMI] 33.0-33.9, adult
CPT/HCPCS: 27447; 64447; 36415; 73560; 80048; 80307; 81001; 82040; 83036; 85025; 85610; 85730; 86850; 86900; 86901; 87081; 87086; 87088; 97110; 97116; 97161; 97165; 97535; A9270; C1713; C1776; J0171; J0690; J1100; J1885; J2270; J2405; J2704; J2795; J3010; J7120

== ENCOUNTER → 2022-08-10 13:43 | Outpatient (CLI) | payer MEDICARE, SELFPAY ==
--- NOTE | ~2022-08-10 | CT_ITS ---
EXAMINATION: CT femur LT wo con DATE: 08/10/2022 14:02 INDICATION: Left thigh pain. Assess for stress fracture. TECHNIQUE: High resolution computed tomography (CT) of the left femur was performed without intraveno us contrast. Additional sagittal and coronal reconstructions were performed. Automated exposure contr ol and iterative reconstruction technique were employed. The dose-length product was 1079.83 mGy-cm. COMPARISON: Radiographs dated 08/02/2022 and 01/27/2018 FINDINGS: Alignment is normal. Again seen is chronic periosteal reaction associated with a horizontal linear sc lerotic stress fracture line along the lateral subtrochanteric cortex of the proximal left femur. Cor responding linear lucency is seen at this location on the radiographs dated 01/27/2018. Pattern is ty pical for stress fracture related to chronic bisphosphonate views. No evident new acute appearing marilin ear lucent fracture line. 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 No left hip joint effusion. Right total knee arthroplasty. 1.4 cm dist raction across a horizontally oriented patellar likely avulsion fracture. Small left knee joint effus ion. Enthesophytes and small enthesopathic ossicles at the tibial insertion of the distal patellar te ndon, the quadriceps and patellar tendon insertions on the patella, the medial femoral condylar inser tion of the distal abductor longus tendon and finally at the greater trochanter. Moderate diverticulo sis along the visualized sigmoid colon without adjacent inflammatory stranding to suggest diverticuli tis. No pathologically enlarged left pelvic or inguinal lymphadenopathy. IMPRESSION: 1. Chronic stress fracture along the lateral cortex of the subtrochanteric left femur which was prese nt on radiographs dated 01/27/2018 and with location typical for fracture identified to chronic bisph osphonate use. Correlate with clinical history. 2. Relatively acute appearing transverse patellar fracture potentially related to avulsion with 1.4 c m distraction. Reviewed, dictated and finalized at location A. IMPRESSION: 1. Chronic stress fracture along the lateral cortex of the subtrochanteric left femur which was present on radiographs dated 01/27/2018 and with location typi lorraine for fracture identified to chronic bisphosphonate use. Correlate with clini lorraine history. 2. Relatively acute appearing transverse patellar fracture potentially related to avulsion with 1.4 cm distraction.
== END ==
PROVIDERS: PCP Family Medicine; Visit Provider Orthopaedic Surgery
DX: M17.11 Unilateral primary osteoarthritis, right knee (principal); S72.22XA Displaced subtrochanteric fracture of left femur, initial encounter for closed fracture; X58.XXXA Exposure to other specified factors, initial encounter
CPT/HCPCS: 73700

== ENCOUNTER 2023-11-12 09:43 | Outpatient (CLI) | payer MEDICARE, SELFPAY ==
--- NOTE | ~2023-11-12 | MR_ITS ---
MR breast BI wo/w con 11/12/2023 11:52 CDT INDICATION: Right breast cancer TECHNIQUE: MRI of the breasts perform using standard protocol pre-and post IV contrast with the follo wing sequences: Axial T2 STIR, axial T1, axial vibrant T1 with fat suppression precontrast and multip hasic postcontrast. 18 cc MultiHance administered intravenously. COMPARISON: Outside mammogram and ultrasound dated 09/13/2023 and 10/04/2023 FINDINGS: There are no abnormalities on the precontrast sequences. There is moderate background paren chymal enhancement. There is a mass in the lower outer quadrant of the right breast at 7:00 anteriorl y measuring 1.8 x 1.9 x 1.2 cm. There is internal signal void, likely compatible with biopsy clip. Th e mass is irregular with irregular margins, heterogeneous enhancement. There are rapid washout enhanc ement characteristics there are several surrounding areas of focal nodular enhancement with similar c haracteristics which may represent background enhancement or satellite nodules. There are normal enha ncing intramammary and right axillary lymph nodes. LEFT BREAST: No signal abnormalities on precontrast sequences. There is moderate background parenchy mal enhancement. No enhancing lesions following contrast administration. No areas of enhancement m eeting threshold criteria on CAD analysis. No evidence of signal abnormalities in the axillary or i nternal mammary node distributions. IMPRESSION: 1: Right breast: Heterogeneously enhancing irregular shaped right breast mass in the lower outer brandon drant at 7:00 anteriorly measuring up to 1.9 cm, compatible with known malignancy. Surrounding foci w ith similar enhancement are seen which may represent background enhancement or satellite nodules. 2: Left breast: Negative. No evidence of malignancy. BI-RADS category 1. Recommend annual mammogr aphy follow-up. BI-RADS category 6- Known biopsy proven malignancy: Appropriate action should be taken. Reviewed, dictated and finalized at location B. IMPRESSION: 1: Right breast: Heterogeneously enhancing irregular shaped right breast mass in the lower outer quadrant at 7:00 anteriorly measuring up to 1.9 cm, compatib le with known malignancy. Surrounding foci with similar enhancement are seen wh ich may represent background enhancement or satellite nodules. 2: Left breast: Negative. No evidence of malignancy. BI-RADS category 1. Re commend annual mammography follow-up. BI-RADS category 6- Known biopsy proven malignancy: Appropriate action should b e taken.
== END 2023-11-12 09:44 | disposition home or self-care (01) ==
PROVIDERS: PCP Family Medicine; Visit Provider Surgery
DX: C50.911 Malignant neoplasm of unspecified site of right female breast (principal)
CPT/HCPCS: 77049; A9577; C8908

== ENCOUNTER 2023-12-23 11:30 | Outpatient (CLI) | payer MEDICARE, SELFPAY ==
--- NOTE | 2023-12-23 11:38 | ECG_ITS ---
Test Date: 2023-12-23 12:06:21 Measurements Intervals [place] Rate: 49 P: 74 IN: 230 QRS: 21 QRSD: 87 T: 33 QT: 376 QTc: 341 Interpretive Statements SINUS BRADYCARDIA WITH FIRST DEGREE AV BLOCK LOW QRS VOLTAGE IN PRECORDIAL LEADS BASELINE ARTIFACT- I, II, III, AVR, AVL, AVF, V1-V6 ABNORMAL ECG No previous ECG available for comparison Electronically Signed On 12-23-2023 12:09:42 CDT by Osorio Sterling D.O.
== END 2023-12-23 11:31 | disposition home or self-care (01) ==
PROVIDERS: PCP Family Medicine; Visit Provider Surgery
DX: Z01.818 Encounter for other preprocedural examination (principal); I10 Essential (primary) hypertension; C50.911 Malignant neoplasm of unspecified site of right female breast; R94.31 Abnormal electrocardiogram [ECG] [EKG]; R00.1 Bradycardia, unspecified; I44.0 Atrioventricular block, first degree
CPT/HCPCS: 36415; 86850; 86900; 86901; 93005

== ENCOUNTER 2024-01-01 01:42 | Day surgery (SDC) | payer MEDICARE, SELFPAY ==
--- NOTE | 2023-12-20 15:27 | PC.NURSE ---
Report to the Outpatient Waiting Room, entrance under the green pavilion located off [facility], at time _7:30 AM on date01/01/24 . Planned Procedure Time: 9:30 AM .? NUCLEAR MED AT 8:15 AM Time changes happen often and if your time is changed the preop area will call you the afternoon before. - You and your visitor will be asked to self-screen and do not enter if you have any COVID symptoms. Please call surgeon if you need to reschedule. - A mask is optional within the hospital at this time. Patients may have clear liquids (water, carbonated beverages, clear teas, apple juice) until 3 hours prior to surgery(6:30 AM) with a maximum of 20 ounces. - No food from midnight until time of surgery and no smoking - Infants may have breast milk until 4 hours before surgery, infant formula 6 hours prior to surgery. - Children will be allowed to drink immediately following surgery.? If applicable, please bring a bottle or sippy cup to assist with drinking. Juice, water, soda, and popsicles are readily available.? For infants on formula, please bring formula the day of surgery.? Pacifiers are allowed. Take only the following medications with a SIP of water on the morning of surgery: _INHALER IF NEEDED DO NOT STOP ANY OF YOUR OTHER PRESCRIPTION MEDICATIONS PRIOR TO SURGERY EXCEPT THE FOLLOWING Medications to discontinue per physician _HOLD ALL VITAMINS AND SUPPLEMENTS 3 DAYS PRE OP.LAST DOSE 12/28/23 Please no make-up, nail chilean, hairspray, perfume, deodorant, or body powder the day of surgery.? No jewelry (including any body piercings) or valuables the day of surgery, leave them at home.? Please take a shower or bath the night before, or the morning of, surgery with an antibacterial soap.? Wear comfortable, loose fitting clothing.? Children are encouraged to wear pajamas. - Jewelry must be removed prior to entering the operating room.? Rings and piercings that are not removed may be cut off. - The hospital will not accept responsibility for valuables.? - Please leave all valuables, including medications, at home the day of surgery. If you are going home after surgery, a licensed class c truck driver must drive you home.? - NO public transportation without another adult if you receive anesthesia. - We recommend that an adult stay with you for 24 hours following discharge. - We also recommend that you do not drive, make important decision, drink alcoholic beverages, or take any drugs that were not prescribed by your health care provider for at least 24 hours after your discharge time. Follow any additional instructions given to you from your surgeon. Telephone instructions given to _PATIENT and asked if any additional questions and then verbalized understanding. Patient advised to call surgeon office or pre surgery nurse liaison [phone] if any additional questions.
[2023-12-20 15:35] VITALS: BMI 32.1
[2024-01-01] VITALS (8 sets, daily range): BP systolic 130–157; BP diastolic 51–75; PULSE 76–95; RESP 15–18; TEMP 36.2–37.1; O2SAT 94–100; BMI 32.1
--- NOTE | ~2024-01-01 | NM_ITS ---
EXAMINATION: NM sentinel node inject only DATE: 01/01/2024 09:09 INDICATION: Right breast cancer TECHNIQUE: 0.974 mCi Tc-99m filtered sulfur colloid was injected in four aliquots in the anterior royer ast near the areola. No images were obtained. IMPRESSION: 1. Right breast sentinel lymph node radiopharmaceutical injection. Reviewed, dictated and finalized at location A.
[2024-01-01] MEDS: LIDOCAINE/PRILOCAINE CREAM 2.5-2.5% TUBE 1 EACH TOPICAL (08:00)
[2024-01-01] MEDS: ACETAMINOPHEN 500 MG TABLET 1000 MG PO (08:29)
--- NOTE | 2024-01-01 09:53 | WPDHPUPDATE1 ---
History and Physical Update Update Date/Time: 01/01/24 09:53 - Right total mastectomy, right sentinel lymph node biopsy with Lymphoseek, possible methylene blue injection for sentinel lymph node mapping, possible adjacent tissue transfer History and Physical has been reviewed, including an updated exam of the patient. There are NO changes in the patient's condition. Risks, benefits, and alternatives have been discussed and questions answered. Patient agrees to proceed with procedure.
--- NOTE | 2024-01-01 09:56 | WPDANESEPPF ---
Anes - Initial Pre Proc Eval Procedure: Operation Date: 01/01/24 09:30 Proposed Procedures p Right Total Mastectomy, Right Axillary [place] Lymph Node Biopsy with Lymphoseek, Possible Methylene Blue Injection for [place] Node Mapping, Possible Adjacent Tissue Transfer - Dede Jacob MD Date/Time: 01/01/24 09:56 Surgeon: Dede Jacob MD Pre Op Diagnosis: right breast CA Patient Data Age: 78 Gender: F Height: 1.65 m Weight: 87.7 kg Last Vital Signs Temp 36.2 C L 01/01/24 08:38 Pulse 76 01/01/24 08:38 Resp 18 01/01/24 08:38 BP 137/69 01/01/24 08:38 Pulse Ox 99 01/01/24 08:38 O2 Del Method Room Air 01/01/24 08:38 Allergies Allergy/AdvReac Type Severity Reaction Status Date / Time JERI Inhibitors Allergy Unknown Cough Verified 01/01/24 08:26 Penicillins Allergy Unknown hives Verified 01/01/24 08:26 Home Medications Medication Instructions Recorded Confirmed Type Caltrate with Vitamin D3 1 tab-cap PO DAILY 09/17/19 12/20/23 History Glucosamine Chondroitin 1 tab-cap PO BID 09/17/19 12/20/23 History L-Lysine 1 tab-cap PO DAILY 09/17/19 12/20/23 History One-A-Day Women's 50 Plus 1 tab-cap PO DAILY 09/17/19 12/20/23 History cyanocobalamin (vitamin B-12) 1 tab-cap PO BID 09/17/19 12/20/23 History valacyclovir 1 gram tablet See Rx Instructions .Route 11/20/21 12/20/23 Rx .COMPLEX #12 tabs albuterol sulfate 90 mcg/actuation 2 puff inhalation PRN PRN 01/17/22 12/20/23 History aerosol inhaler (ProAir HFA) Shortness Of Breath omeprazole 20 mg capsule,delayed 20 mg PO DAILY #90 caps 04/16/23 01/01/24 Rx release valsartan 320 mg tablet 320 mg PO DAILY #90 tabs 06/05/23 12/20/23 Rx lovastatin 20 mg tablet 20 mg PO DAILY #90 tabs 06/20/23 12/20/23 Rx doxycycline hyclate 50 mg tablet 50 mg PO DAILY PRN PRIOR TO 10/30/23 12/20/23 History PROCEDURES anastrozole 1 mg tablet 1 mg PO HS 11/14/23 12/20/23 History acetaminophen 650 mg 1,300 mg PO Q12H PRN Pain 12/20/23 12/20/23 History tablet,extended release amlodipine 5 mg tablet See Rx Instructions .Route 12/26/23 Rx .COMPLEX #90 tabs Patient hx anesthesia problems: post op nausea/vomiting Family hx anesthesia problems: none Results Review: All pre-operative results and documents have been reviewed as part of the pre-operative evaluation. 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 Obesity [place] (obstructive sleep apnea) Osteopenia Right knee DJD Tear of meniscus of left knee Tinnitus Surgical History Surgical History History of eye surgery cataract surgery and eyelid lift History of hysterectomy History of knee surgery LT meniscus tear repair S/P total knee arthroplasty Family History Family History Mother Hypertension Family history of Alzheimer's disease Family history of dementia History of stroke Sibling Family history of kidney disease Carcinoma of colon Family history of coronary artery disease Family history of renal failure History of colon cancer Father Family history of lung cancer Social History Social History Social History: Smoking status: Never smoker Second hand tobacco smoke exposure: Yes (over 30 years ago) Additional smoking assessment comments: DENIES ANY FORM OF TOBACCO USE Alcohol intake: current Drinks per week: 3 Alcohol use details: Socially Substance use: never Substance use type: does not use Do You Feel Safe in your Home?: Yes Lack of Transportation: No Lack of Food: Kavitha
[2024-01-01 10:11] LABS: Basophils Percent Auto 0.4 % (0.2-1.2); Eosinophils Absolute Auto 0.1 K/mm3 (0-0.3); Eosinophils Percent Auto 1.2 % (0-4.4); Hematocrit 37.5 % (37.0-47.0); Hemoglobin 12.3 g/dL (12.0-15.0); Immature Granulocyte Absolute 0.02 K/mm3 (0.00-0.031); Immature Granulocyte Percent A 0.2 % (0-0.5); Lymphocytes Absolute Auto 1.65 K/mm3 (0.9-3.2); Lymphocytes Percent Auto 20.2 % (18.3-44.2); Mean Corpuscular HGB Conc 32.8 g/dl (32-36); Mean Corpuscular Hemoglobin 30.3 pg (26-34); Mean Corpuscular Volume 92.4 fl (80-100); Mean Platelet Volume 9.2 fl (7.4-10.4); Monocytes Absolute Auto 0.7 K/mm3 (0.1-0.6); Monocytes Percent Auto 8.6 % (2.6-8.5); Neutrophils Absolute Auto 5.7 K/mm3 (1.3-6.7); Neutrophils Percent Auto 69.4 % (45.5-73.1); Platelet Count Result 347 k/mm3 (150-375); Red Blood Count 4.06 M/mm3 (4.2-5.4); Red Cell Distribution Width 13.9 % (11.5-14.5); White Blood Count 8.2 K/mm3 (4.5-10.0)
[2024-01-01] MEDS: ceFAZolin 2 GM/D5W 50 ML 2 GM/50 ML BAG IVPB (10:17)
[2024-01-01] MEDS: BUPIVACAINE/EPINEPHRINE 0.5% 50 ML VIAL 20 ML INFILTRATE (11:04)
[2024-01-01] MEDS: METHYLENE BLUE 0.5% INJ 10 ML AMPULE 5 ML XX (11:07)
--- NOTE | 2024-01-01 12:09 | SUR.OPER ---
Right Axillary [place] Lymph Node #1 [place]- 2705 excision time 1145 transported to pathology at 1157
--- NOTE | 2024-01-01 12:27 | SUR.OPER ---
Right Breast Mastectomy excision time 1217 transported to pathology at 1226 short stitch- superior long stitch- lateral
[2024-01-01] MEDS: BUPIVACAINE/EPINEPHRINE 0.5% 10 ML VIAL 20 ML INFILTRATE (13:08)
--- NOTE | 2024-01-01 13:11 | W.PM.PROC2 ---
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 Right total mastectomy 2. Right sentinel lymph node biopsy 3. Methylene blue injection as a dual tracer for sentinel lymph node mapping in conjunction with Lymphoseek 4. adjacent tissue transfer 30 cm x 5 cm (total area of 150 cm2) Surgeon Dede Jacob MD Lo[facility] Counter Miesha Emerson PA-C Anesthesia General Description of Procedure Patient was identified in the preoperative holding area brought to the operating room suite.? She was placed supine operating table sequential compression devices were applied. General anesthesia was induced without difficulty.?Diluted methylene blue was injected into the periareolar skin in the subdermal plane as a dual tracer for sentinel lymph node mapping. Right chest and right axillary areas were prepped draped in sterile fashion. The sentimag probe was used to find the area of highest radio activity in the right axilla, and an incision was made overlying this area that was incorporated into the mastectomy incision.? Dissection was carried down through the subcutaneous tissue and the clavipectoral fascia was incised.? I was able to identify a node that was hot and blue.? This was gently grasped and excised using the LigaSure device.? The gamma probe was used to obtain account which was approximately [id number].? This was sent to pathology as a permanent specimen.? The gamma probe was again used to scan the axilla trying to identify another node that was at least 10% of the original sentinel lymph node count. No other node was found and the axilla was irrigated and hemostasis was assured.? The clavipectoral fascia was approximated with a running 3-0 Vicryl.? An elliptical incision encompassing the nipple areolar complex was made and dissection was carried down through the subcutaneous tissue and continued through the thin areolar tissue plane between the subcutaneous tissue with the breast tissue superiorly to the inferior border of the clavicle.? We then continued our dissection medially to the lateral aspect of the sternum, inferiorly to the inframammary fold and laterally to latissimus.? Once this was performed the breast tissue along with the pectoralis fascia was dissected off the pectoralis muscle posteriorly.? The mastectomy specimen was then marked short stitch superior long stitch lateral stitch lateral for orientation.? The specimen was then sent to pathology as a fresh specimen.? 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 Given the location of this intramuscular lipoma, we decided to leave in place (due to proximity to subclavian vessels). One round 15Fr drain was placed above the pectoralis muscle and secured to the skin with silk suture. ?Given the redundant skin flap inferiorly, decision was made to use the inferior skin flaps to create a hanna inferior mound and give a better contour to the chest.? The defect on the right side was 30cm x 5cm.? The inferior skin flap was de-epithelialized bilaterally and carefully tacked to the pectoralis muscle with interrupted 2-0 Vicryl.? The superior mastectomy flap was then secured to the inferior flap using 3-0 Vicryl interrupted for the deep dermal layer followed by a 4-0 Monocryl in a subcuticular running fashion.? Dermabond was applied followed by sterile compression dressing. All needles counts were correct as reported by the operating room staff. Patient tolerated the procedure well with no immediate complications. Miesha Emerson PA-C assisted with retraction and positioning for the entirety of the case. Estimated Blood Loss 30 Drains Yes Pathology Yes Complications No immediate complications Condition Stable Disposition PACU [facility] Billing Surgery - Charge Forward: Surgery
[2024-01-01] MEDS: LACTATED RINGERS 1,000 ML 30 ML IV CONT ×2 (13:20)
--- NOTE | 2024-01-01 14:18 | ADMGEN ---
This patient, Padmini Jara, was admitted to OB 2nd Floor Room 289-00. Patient/family oriented to hospital policies and general routines including ID bracelet, bed and alarms, visiting hours, pain management, procedures, bathroom and other care routines, personal items, smoking policy, room service/diet, and visiting hours. Information on how to activate the Rapid Response Team has been discussed. Patient/Family are encouraged to report perceived risks to care and to ask questions if they do not understand what they are told or what they should do.
[2024-01-01] MEDS: HYDROmorphone HCL INJ (*CRX) 1 MG/ML SYR IV PUSH (14:58)
[2024-01-01] MEDS: LACTATED RINGERS 1,000 ML 100 ML IV CONT (15:04)
[2024-01-01] MEDS: HYDROcodone/acetaminophen (*CRX) 10-325 MG TABLET 1 TAB PO ×3 (16:06→23:21)
[2024-01-01] MEDS: DOCUSATE SODIUM 100 MG CAPSULE PO (16:06)
[2024-01-01] MEDS: ACETAMINOPHEN 325 MG TABLET 650 MG PO (17:38)
[2024-01-01] MEDS: amLODIPine BESYLATE 5 MG TABLET PO (21:17)
[2024-01-01] MEDS: VALSARTAN 160 MG TABLET 320 MG PO (21:17)
[2024-01-01] MEDS: LOVASTATIN 20 MG TABLET PO (21:18)
[2024-01-02] MEDS: ACETAMINOPHEN 325 MG TABLET 650 MG PO ×2 (00:06→05:56)
[2024-01-02 01:00] VITALS: BP 96/50; PULSE 83; RESP 18; TEMP 36.8; O2SAT 100
[2024-01-02] MEDS: HYDROcodone/acetaminophen (*CRX) 10-325 MG TABLET 1 TAB PO (04:00)
[2024-01-02 07:30] VITALS: BP 120/52; PULSE 64; RESP 16; TEMP 36.8; O2SAT 99
[2024-01-02] MEDS: ONDANSETRON INJ 4 MG/2 ML VIAL IV PUSH (09:00)
[2024-01-02] MEDS: DOCUSATE SODIUM 100 MG CAPSULE PO (10:14)
[2024-01-02] MEDS: MULTIVITAMINS /C LUTEIN (CENTRUM SILVER) TABLET *BKC 1 TAB PO (10:14)
[2024-01-02] MEDS: PANTOPRAZOLE 40 MG TABLET PO (10:14)
[2024-01-02] MEDS: INFLUENZA VACCINE HIGH DOSE (>64) 180 MCG/0.5 ML SYRINGE IM (10:15)
--- NOTE | 2024-01-02 12:36 | PM.DS ---
DS: Admitting Diagnosis Discharge Date 01/02/24 Admitting Diagnosis Right breast invasive ductal carcinoma with lobular features DS: Discharge Diagnosis Discharge Diagnosis Plan Right breast invasive ductal carcinoma with lobular features DS: Summary Hospital Course Reason for hospitalization: Post-op for overnight observation Hospital Course: Patient was admitted post-op for overnight observation. Her pain is well controlled with PO pain meds, and she is ambulating. She tolerated diet well and is voiding. Patient was deemed stable for discharged on POD1. Status at Discharge Functional status at discharge: independent ambulation Overall status at discharge: patient is back to baseline Time Spent with Patient Time attestation: Total time spent providing and/or coordinating discharge services: Time spent: Less than 30 minutes Exam Narrative: mastectomy flap is well perfused and viable. No bleeding noted on dressing. Incision closed and intact. Const: General: comfortable and no acute distress Eyes: General: appearance normal, both eyes and all related structures Resp: Effort & Inspection: normal respiratory effort Cardio: Rate: regular rate Skin: General skin exam: normal color Neuro: General: gait normal Extrem: General: normal to inspection DS: Data Data Completed and Pending Pending studies at discharge: Pending at discharge 01/01/24 11:48 Surgical [PTH] Routine Surgical [PTH] Routine 01/01/24 12:23 Surgical [PTH] Routine 01/01/24 12:45 Surgical [PTH] Routine Discharge Plan Discharge Patient Disposition: Home, Self-Care Discharge Instructions: Dede Jacob MD [facility] [address] [place] [address] Post-operative Discharge Instructions Diet: As tolerated Activity: Avoid overhead movements with the affected arm/side for 2 weeks. You should walk at least 3-4 times daily, but do not exert yourself. Ok to go up and down stairs. Dressing: Wear the compression bandage or compression bra at all times, including at night while sleeping. Ok to remove for shower. Showering: No showers or baths while drain is in place. Ok for sponge baths. Drain Care: Strip the drain tubing at least once a day, and empty drain. Record the drain output and bring record to your follow up visit. Follow up: Return to the office in 1 week for post-op follow up visit. Call the office with any questions or concerns in the meantime. If after hours, please call the roto rooter operator to be connected to the surgeon. If you have an emergency , call 911 or go to the nearest ER. Patient Instructions: Mastectomy (DC) Stand Alone Forms: General Discharge Instructions Follow-up/Referrals: Dede Jacob MD [Physician] - Discharge Medications: New hydrocodone-acetaminophen 5-325 mg tablet 1 tablet PO Q6H PRN (Reason: pain) Qty: 16 0RF Continued Caltrate with Vitamin D3 1 tab-cap PO DAILY Glucosamine Chondroitin 1 tab-cap PO BID L-Lysine 1 tab-cap PO DAILY One-A-Day Women's 50 Plus 1 tab-cap PO DAILY cyanocobalamin (vitamin B-12) 1 tab-cap PO BID valacyclovir 1 gram tablet See Rx Instructions .ROUTE .COMPLEX Qty: 12 1RF Dose Instruction: TAKE 2 TABLETS BY MOUTH AND REPEAT IN 12 HOURS Rx Instructions: TAKE 2 TABLETS BY MOUTH AND REPEAT IN 12 HOURS doxycycline hyclate 50 mg tablet 50 mg PO DAILY PRN (Reason: PRIOR TO PROCEDURES) Patient Comments: 2 tablets before dentist anastrozole 1 mg tablet 1 mg PO HS valsartan 320 mg tablet 320 mg PO DAILY Qty: 90 3RF Patient Comments: TAKES AT HS Rx Instructions: PT TAKES AT HS albuterol sulfate [ProAir HFA] 90 mcg/actuation HFA aerosol inhaler 2 puff INHALATION PRN PRN (Reason: Shortness Of Breath) omeprazole 20 mg capsule,delayed release(DR/EC) 20
== END 2024-01-02 11:05 | disposition home or self-care (01) ==
LOC: ANHSURGERY 09:46 → ANHOB2 15:11
PROVIDERS: Nurse Anesthetist, Certified Registered; PCP Family Medicine; Visit Provider Surgery
PROC: (CPT 19303; principal; 2024-01-01 09:30)
DX: C50.811 Malignant neoplasm of overlapping sites of right female breast (principal); Z17.0 Estrogen receptor positive status [ER+]; K21.9 Gastro-esophageal reflux disease without esophagitis; E78.5 Hyperlipidemia, unspecified; I10 Essential (primary) hypertension; M17.0 Bilateral primary osteoarthritis of knee; G47.33 Obstructive sleep apnea (adult) (pediatric); Z79.51 Long term (current) use of inhaled steroids; E66.9 Obesity, unspecified; Z68.32 Body mass index [BMI] 32.0-32.9, adult; Z98.890 Other specified postprocedural states; Z86.010 Personal history of colon polyps; Z80.0 Family history of malignant neoplasm of digestive organs; Z80.1 Family history of malignant neoplasm of trachea, bronchus and lung; Z82.49 Family history of ischemic heart disease and other diseases of the circulatory system; Z23 Encounter for immunization
CPT/HCPCS: 19303; 38525; 38792; 14301; 14302 ×3; 36415; 85025; 86850; 86900; 86901; 88305; 88307; 88342; 90471; 90662; 93005; 99199; A9270; A9520; G0008; J0690; J1100; J1170; J2405; J2704; J3010; J7120; Q9968

== ENCOUNTER 2024-05-26 10:22 | Outpatient (CLI) | payer MEDICARE, SELFPAY ==
[2024-05-26 11:24] LABS: Basophils Absolute Auto 0.1 K/mm3 (0.0-0.1); Basophils Percent Auto 0.8 % (0.2-1.2); Eosinophils Absolute Auto 0.2 K/mm3 (0-0.3); Eosinophils Percent Auto 2.3 % (0-4.4); Hematocrit 39.6 % (37.0-47.0); Immature Granulocyte Absolute 0.04 K/mm3 (0.00-0.031); Immature Granulocyte Percent A 0.5 % (0-0.5); Lymphocytes Absolute Auto 2.21 K/mm3 (0.9-3.2); Lymphocytes Percent Auto 27.6 % (18.3-44.2); Mean Corpuscular HGB Conc 32.8 g/dl (32-36); Mean Corpuscular Hemoglobin 29.7 pg (26-34); Mean Corpuscular Volume 90.6 fl (80-100); Mean Platelet Volume 9.3 fl (7.4-10.4); Monocytes Absolute Auto 0.8 K/mm3 (0.1-0.6); Monocytes Percent Auto 9.6 % (2.6-8.5); Neutrophils Absolute Auto 4.7 K/mm3 (1.3-6.7); Neutrophils Percent Auto 59.2 % (45.5-73.1); Platelet Count Result 402 k/mm3 (150-375); Red Blood Count 4.37 M/mm3 (4.2-5.4); Red Cell Distribution Width 13.3 % (11.5-14.5)
--- OUTSIDE RECORDS SUMMARY | 2024-05-26 11:29 | XMS_ITS | Referral Summary ---
Author Organization [facility] Address [address] [place] [address] Care Team Providers Care Material Disposition Inspector Name Role Phone Lonny Zamarripa MD Primary Care Provider Jamar SINHA OD, Colby Da Silva Unavailable [phone] Encounters Date Type Department Care Team Description 03/30/2024 Orders Only [facility] [address] [place] [address] Unknown, Notinfile from Last 3 Months Allergies Active Allergy Reactions Criticality Noted Date Comments Penicillins Medications amLODIPine (NORVASC) 5 mg tablet Take 1 tablet (5 mg total) by mouth daily Active lovastatin (MEVACOR) 20 mg tablet Take 1 tablet (20 mg total) by mouth daily 07/29/2021 Active omeprazole (PriLOSEC) 20 mg capsule Take 1 capsule (20 mg total) by mouth daily 07/15/2021 Active valACYclovir (VALTREX) 1 gram tablet Take 1 tablet (1,000 mg total) by mouth as needed Active valsartan (DIOVAN) 80 mg tablet Take 80 mg by mouth daily 06/27/2021 Active multivitamin-ir on-folic acid 18-400 mg-mcg tablet Take 1 tablet by mouth daily Active lysine 500 mg tablet Take 2 tablets (1,000 mg total) by mouth daily Active calcium carbonate-vit D3-min 600 mg calcium- 400 unit tablet Take 1 tablet by mouth daily Active glucosamine-cho ndroitin (glucosamine-ch ondroitin) 500-400 mg capsule Take 1 capsule by mouth daily Active cyanocobalamin (Vitamin B-12) 1,000 mcg tablet Take 2 tablets (2,000 mcg total) by mouth daily Active valsartan (DIOVAN) 160 mg tablet Take 1 tablet (160 mg total) by mouth daily 08/11/2022 Active Active Problems Problem Noted Date Diagnosed Date 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 Family history of colon cancer 08/04/2021 Overview (08/04/2021): Added automatically from request for surgery [id number] Personal history of colonic polyps 08/04/2021 Overview (08/04/2021): Added automatically from request for surgery [id number] Encounter for screening colonoscopy 08/04/2021 Overview (08/04/2021): Added automatically from request for surgery [id number] 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 2-4 times a month 09/25/2021 Q2: How many drinks containi ng alcohol do you have on a typical day when you are drinking? 1 or 2 09/25/2021 Q3: How often do you have si x or more drinks on one occasion? Never 09/25/2021 Personal Safety Answer Date Recorded Getting School Help Needed Not on file 04/07 Comments No Sex and Gender Information Value Date Recorded Sex Assigned at Not on file Legal Sex Female 1:27 AM HEALTH AND SAFETY SPECIALIST Gender Identity Not on file Sexual Orientation Not on file Last Filed Vital Signs Vital Sign Reading Time Taken Comments Blood Pressure 134/65 10/04/2023 9:02 AM CDT Pulse 76 10/04/2023 9:02 AM CDT Temperature 36.6 C (97.8 F) 09/25/2021 8:51 AM CDT Respiratory Rate 20 10/04/2023 9:02 AM CDT Oxygen Saturation 98% 09/25/2021 8:51 AM CDT Inhaled Oxygen Concentration - - Weight 88.9 kg (196 lb) 07/29/2023 12:20 PM CDT Height 165.1 cm (5' 5 ) 07/29/2023 12:20 PM CDT Body Mass Index 32.62 07/29/2023 12:20 PM CDT Plan of Treatment Not on file Medical Devices Implanted Type Area Track Manager Device Identifier Shelf Expiration Date Model / Serial / Lot Bard Peripheral Vascular Ultraclip Bard 17ga 10cm 2 Trigger Permanent Ultrasound [id number] - [id number] - [id number] Implanted:Qty: 1 on 10/04/2023 by Eloise Pope MD at [facility] Breast Right: Breast Bard Peripheral Vascular 09/09/2025 [id number] / [id number] Description:Implanted Right Breast 9:00 area 3 cmfn Procedures Procedure Name Priority Date/Time Associated Diagnosis Comments SURGICAL PATHOLOGY Routine 03/30/2024 12:00 AM HEALTH AND SAFETY SPECIALIST DEXA AXIAL SKELETON BONE DENSITY 1 OR MORE SITES Schedule Routine, Read Routine (OP Routine) 08/05/2023 2:44 PM CDT Asymptomatic menopausal state from Last 3 Months or Most Recently Relevant to Health Maintenance Results * Surgical pathology (03/30/2024 12:00 AM HEALTH AND SAFETY SPECIALIST) Skin, shave biopsy 03/30/2024 04/01/2024 7:07 AM HEALTH AND SAFETY SPECIALIST Narrative 04/02/2024 11:55 AM HEALTH AND SAFETY SPECIALIST [facility] results best viewed via link to PDF [facility] [address] [place] [address], [address], [place] [address] [email or web address] Note to Patients: This report may contain a detailed description of human tissue sent by a health care provider to the laboratory for pathologic evaluation. The content of this report is essential for diagnosis and may provide important critical findings. This information may be unfamiliar to patients to review without a medical professional present. It is advised that the patient review this report in the presence of a health care provider who can answer questions and explain the details. FINAL REPORT Patient Information: PATIENT NAME: RU JARA SEX: F : 1945 (Age: 79) Specimen Information: COLLECTED: 03/30/2024 RECEIVED: 04/01/2024 REPORTED: 04/02/2024 Submitting Physician Information: Bibiana Contreras, [facility], [address] [place] [address], DERMATOPATHOLOGY REPORT RESULTS DIAGNOSIS: SKIN, RIGHT BUTTOCK, SHAVE BIOPSY: RUBBED JUNCTIONAL MELANOCYTIC NEVUS, LENTIGINOUS TYPE, RUBBED dh/lac By this signature, I attest that the above diagnosis is based upon my personal examination of the slides(and/or other material indicated in the diagnosis). Ana Crow M.D. Report Electronically Reviewed and Signed Out By Ana Crow M.D. 04/02/2024 11:55:11 CLINICAL INFORMATION NEOPLASM OF UNCERTAIN BEHAVIOR VS. DYSPLASTIC NEVUS VS. LENTIGO SPECIMEN DATA MICROSCOPIC DESCRIPTION: There is a proliferation of enlarged, relatively uniform melanocytes arranged predominantly as solitary units but also as small nests within the epidermis at the dermo-epidermal junction. There is also reticulated epidermal hyperplasia and hyperpigmentation. (D22.9) GROSS DESCRIPTION: Received in a formalin-containing bottle is a superficial fragment of pale marin, finely scaling, and semi-translucent skin measuring 0.6 by 0.6 by 0.1 cm. The surgical margin is inked blue. The specimen bears a brown, flat, poorly circumscribed area measuring 0.4 by 0.3 cm. The specimen is sectioned into 3 pieces and submitted entirely in a single cassette. Due to shrinkage, measurements may be different than those at the time of procedure. exr/anc ICD-9 A; ZSD.877 Clerical Data A; 44979 The characteristics of special, immunohistochemical, and immunofluorescence stains and in-situ hybridization tests performed by the [facility] were deemed acceptable in ongoing software quality assurance engineer measures and in compliance with regulations drawn from the Clinical Laboratory Improvement Act hy8144 (CLIA '88). Control reactions for all stains performed were deemed adequate and appropriate by a pathologist prior to evaluation of patient tissue. Some diagnoses were rendered with the assistance of laboratory-developed tests utilizing analyte-specific reagents; the performance characteristic of these tests were determined by [facility] and are not cleared or approved by the [place] Food an Drug administration. Laboratory developed test may only be performed in a facility that is certified by the [facility] as a high-complexity laboratory under CLIA '88. These tests are used for clinical purposes and are not investigational. us Notinfile Unknown LAB PATHOLOGY ORDERABLES Final Result * Dexa Axial Skeleton Bone Density 1 or 2 Site (08/05/2023 2:44 PM CDT) Anatomical Region Laterality Modality Body N/A Other 08/05/2023 7:29 PM CDT Narrative 08/05/2023 7:30 PM CDT EXAM DESCRIPTION: DEXA AXIAL SKELETON BONE DENSITY 1 OR MORE SITES REASON FOR STUDY: 78 y/o year old F with given history of: z78.0 Screening. Postmenopausal Track Manager/Model: SmashChart SL (S/N [id number]) CLINICAL INFORMATION: Current height: 64.5 inches Maximum height: 65 inches Weight: 196 pounds Risk factors: Postmenopausal COMPARISON: 09/13/2017 Dissimilar scan types or analysis methods precludes assessment for calculating a significant change. FINDINGS: AP LUMBAR SPINE L1-L4: Total BMD is 1.009 g/cm2 T-score is -0.3 LEFT HIP: Total BMD is 0.717 g/cm2 T-score is -1.8 Femoral neck BMD is 0.583 g/cm2 T-score is -2.4 FRAX: 10 year risk for a major osteoporotic fracture is 17 %, 10 year risk for a hip fracture is 5.4 % IMPRESSION: Low Bone Mass. REFERENCE: Bone mineral density: T-Score: Normal (T-score above or = -1.0) Low bone mass (T-score between -1.0 and -2.5) replaces the previously used term osteopenia Osteoporosis (T-score = or below -2.5) Z-Score: Within the expected range for age (Z-score above -2.0) Below the expected range for age (Z-score is -2.0 or below) Please see below follow up recommendations. Medical evaluation for secondary causes of low bone mineral density may be appropriate. FRAX is a World Health Organization validated fracture risk assessment tool that calculates a person's 10 year probability of a major osteoporosis related fracture and hip fracture. According to the National Osteoporosis Foundation guidelines, postmenopausal women and men age 50 or older with low bone mass and a 10 year probability of a major osteoporosis related fracture = or greater than 20% or a 10 year probability of a hip fracture = or greater than 3% should be considered for pharmacological treatment for the prevention of osteoporosis. For further information, including treatment recommendations, please refer to the 2019 ISCD Official Positions (http://www.iscd.org) and the NOF's Clinician's Guide to Prevention and Treatment of Osteoporosis (http://www.nof.org/professionals/clinical-guidelines) THIS IS AN ELECTRONICALLY VERIFIED FINAL REPORT 08/05/2023 7:30 PM - Electronically signed by Miguel Carroll M.D. MF: JOHN Report ID: [id number] Reading Location: [place] [address] Procedure Note Miguel Carroll MD - 08/05/2023 EXAM DESCRIPTION: DEXA AXIAL SKELETON BONE DENSITY 1 OR MORE SITES REASON FOR STUDY: 78 y/o year old F with given history of: z78.0 Screening. Postmenopausal Track Manager/Model: Divided Discovery SL (S/N [id number]) CLINICAL INFORMATION: Current height: 64.5 inches Maximum height: 65 inches Weight: 196 pounds Risk factors: Postmenopausal COMPARISON: 09/13/2017 Dissimilar scan types or analysis methods precludes assessment for calculating a significant change. FINDINGS: AP LUMBAR SPINE L1-L4: Total BMD is 1.009 g/cm2 T-score is -0.3 LEFT HIP: Total BMD is 0.717 g/cm2 T-score is -1.8 Femoral neck BMD is 0.583 g/cm2 T-score is -2.4 FRAX: 10 year risk for a major osteoporotic fracture is 17 %, 10 year risk for ahip fracture is 5.4 % IMPRESSION: Low Bone Mass. REFERENCE: Bone mineral density: T-Score: Normal (T-score above or = -1.0) Low bone mass (T-score between -1.0 and -2.5) replaces thepreviously used term osteopenia Osteoporosis (T-score = or below -2.5) Z-Score: Within the expected range for age (Z-score above -2.0) Below the expected range for age (Z-score is -2.0 or below) Please see below follow up recommendations. Medical evaluation forsecondary causes of low bone mineral density may be appropriate. FRAX is a World Health Organization validated fracture risk assessmenttool that calculates a person's 10 year probability of a major osteoporosisrelated fracture and hip fracture. According to the National OsteoporosisFoundation guidelines, postmenopausal women and men age 50 or older with low bonemass and a 10 year probability of a major osteoporosis related fracture = or greater than 20% or a 10 year probability of a hip fracture = or greaterthan 3% should be considered for pharmacological treatment for the preventionof osteoporosis. For further information, including treatment recommendations, please referto the 2019 ISCD Official Positions (http://www.iscd.org) and the NOF's Clinician's Guide to Prevention and Treatment of Osteoporosis (http://www.nof.org/professionals/clinical-guidelines) THIS IS AN ELECTRONICALLY VERIFIED FINAL REPORT 08/05/2023 7:30 PM - Electronically signed by Miguel Carroll M.D. MF: JOHN Report ID: [id number] Reading Location: [place] [address] Lonny Zamarripa MD IMG DXA PROCEDURES Alma l Result from Last 3 Months or Most Recently Relevant to Health Maintenance Insurance [facility] Address: [address] [place] [id number] [place] [phone] [employer]ARE [employer] Advance Directives For more information, please contact: [phone] * Full Code (Latest Code Status on File) Date Activated Date Inactivated Comments 09/25/2021 7:53 AM 09/25/2021 1:16 PM * Full Code Date Activated Date Inactivated Comments 09/25/2021 7:14 AM 09/25/2021 7:53 AM Care Teams Material Disposition Inspector Relationship Specialty Start Date End Date Lonny Zamarripa MD [address] [facility] [address] [place] [address] PCP - General 08/21/16 Colby Roldan III, OD [address] [place] [address] Primary Eye Care Provider Optometry 08/22/22
--- OUTSIDE RECORDS SUMMARY | 2024-05-26 11:30 | XMS_ITS | Clinical Summary ---
Author Organization [facility] Address [address] [place] [address] Phone Care Team Providers Care Train Operator Name Role Phone Unavailable Unavailable Unavailable Reason for Visit and Chief Complaint DEXASCAN Plan of Treatment No Plan of Treatment Recorded Assessments Includes: Assessments from this encounter No Assessments Recorded Medical Equipment - Implanted Devices Includes: Current Devices No Medical Equipment Recorded Medications Administered Includes: Administered Medications from this encounter No Administered Medications Recorded Results Includes: Results discussed during this encounter No Results Recorded For Specified Dates History of Present Illness Includes: History of Present Illness from this encounter No History of Present Illness Recorded Social History No Social History Recorded - Smoking Status Unknown Medical History Includes: Medical History addressed during this encounter No Medical History Recorded Family History Includes: Family History addressed during this encounter No Family History Recorded Review of Systems Includes: Review of Systems from this encounter No Review of Systems Recorded Mental Status Includes: Mental Status from this encounter No Mental Status Recorded Functional Status Includes: Functional Status from this encounter No Functional Status Recorded Physical Exam Includes: Physical Exam from this encounter No Physical Exam Recorded Clinical Notes Includes: Clinical Notes from this encounter No Clinical Notes Recorded
--- OUTSIDE RECORDS SUMMARY | 2024-05-26 11:30 | XMS_ITS | Clinical Summary ---
Author Organization [facility] Address [facility] [place] [address] Care Team Providers Care Store Stock Associate Name Role Phone Lonny Zamarripa MD Primary Care Provider [phone] Allergies Active Allergy Reactions Criticality Noted Date Comments Penicillins Hives Low 07/07/2021 Medications amLODIPine 5 MG tablet Take 5 mg by mouth daily. Active valsartan 80 MG tablet Take 80 mg by mouth daily. Active lovastatin 20 MG tablet Take 20 mg by mouth daily with supper. Active omeprazole 20 MG capsule Take 20 mg by mouth daily. Active valACYclovir 1 g tablet Take 1,000 mg by mouth as needed. Active calcium carb-cholecalci ferol 600-400 MG-UNIT Tab tablet 1 tablet daily. Active lysine 500 MG tablet Take 1,000 mg by mouth daily. Active Multiple Vitamin (MULTIVITAMIN ADULT OR) Take by mouth daily. Active glucosamine-cho ndroitin 500-400 MG Cap Take 1 capsule by mouth daily. Active vitamin B-12 1000 MCG tablet Take 2,000 mcg by mouth daily. Active diclofenac sodium 1 % gel Apply 2 g topically 4 (four) times daily. 2 g 3 2 Active Family History Medical History Relation Comments KIDNEY FAILURE Brother BRAIN AND LUNG CANCER Father Alzheimers Mother Dementia Mother COLON CANCER Sister Relation Status Comments Brother Alive Father Mother Sister Social History Tobacco Use Types Packs/Day Years Used Date Smoking Tobacco: Never Smokeless Tobacco: Never Alcohol Use Standard Drinks/Week Comments Yes 0 (1 standard drink = 0.6 oz pur e alcohol) SOCIALLY Education Answer Date Recorded What is the highest level of school you have completed or the highest degree you have received? High school graduate 07/07/2021 Comments No Sex and Gender Information Value Date Recorded Sex Assigned at Not on file Legal Sex Female 5:32 PM CDT Gender Identity Not on file Sexual Orientation Not on file Occupation Industry Job Start Date Job End Date Not on file Not on file Not on file Not on file Last Filed Vital Signs Vital Sign Reading Time Taken Comments Blood Pressure 141/76 08/04/2021 9:44 AM CDT Pulse 82 08/04/2021 9:44 AM CDT Temperature 36.3 C (97.3 F) 08/04/2021 9:05 AM CDT Respiratory Rate 20 08/04/2021 9:44 AM CDT Oxygen Saturation 96% 08/04/2021 9:44 AM CDT Inhaled Oxygen Concentration - - Weight 90.6 kg (199 lb 12.8 oz) 08/04/2021 9:05 AM CDT Height 165.1 cm (5' 5 ) 08/04/2021 9:05 AM CDT Body Mass Index 33.25 08/04/2021 9:05 AM CDT Plan of Treatment Health Maintenance Due Date Last Done Comments DTaP, Tdap and Td Vaccines (1 - Tdap) 1962 Zoster Vaccines (1 of 2) 1993 Annual Medicare Wellness Visit 2008 Dexa Scan (General) 2008 Pneumococcal Vaccine: 65+ Years (2 of 2 - PPSV23 or PCV20) 01/04/2016 01/03/2015 RSV Immunization or 60+ Years (1 - 1-dose 75+ series) 2018 COVID-19 Vaccine ( - season) 2023 02/13/2021, 06/08/2020, 05/17/2020 Influenza Adult (#1) 2024 01/21/2020, 02/15/2017, 01/03/2015, Additional history exists Meningococcal B Vaccine Aged Out No l onger eligible based on patient's age to complete this topic Meningococcal Vaccine Aged Out No sabino queenie eligible based on patient's age to complete this topic RSV Immunizations Under 20 Months Aged Out No longer eligible based on patient's age to complete this topic Insurance [facility] Care Teams Store Stock Associate Relationship Specialty Start Date End Date Lonny Zamarripa MD [address] [place] [address] PCP - General FAMILY PRACTICE 07/07/21
--- OUTSIDE RECORDS SUMMARY | 2024-05-26 11:30 | XMS_ITS ---
Care Plan - [facility] Created on: May 26, 2024 RU HART : 1945 Sex: Female Author Organization [facility] Address [address] [place] [address] Phone Care Team Providers Care Supervisor Telephone Information Name Role Phone Unavailable Unavailable Unavailable
--- OUTSIDE RECORDS SUMMARY | 2024-05-26 11:30 | XMS_ITS | Clinical Summary ---
Author Organization [facility] Address [address] [place] [address] Phone Care Team Providers Care Hot Plate Plywood Press Offbearer Name Role Phone Unavailable Unavailable Unavailable Reason [...] from this encounter No Physical Exam Recorded Encounters Encounter Provider Location Date Check-In Time Check-Out Time Diagnosis [facility] HORSE RACETRACK MANAGER 07/01/2007 10:05AM 10:48AM Clinical Notes Includes: Clinical Notes from this encounter No Clinical Notes Recorded
--- OUTSIDE RECORDS SUMMARY | 2024-05-26 11:30 | XMS_ITS ---
Author Organization [facility] Address [address] [place] [address] Phone Care Team Providers Care Journeyman Press Operator Name Role Phone Unavailable Unavailable Unavailable Plan of Treatment No Plan of Treatment Recorded Assessments Includes: Assessments for all patient encounters No Assessments Recorded Medical Equipment - Implanted Devices Includes: Current and historical Devices No Medical Equipment Recorded Medications Administered Includes: Administered Medications in patient's chart No Administered Medications Recorded Results Includes: Results from 05/26/2023 through 05/26/2024 No Results Recorded For Specified Dates History of Present Illness History of Present Illness not supported for this document type No History of Present Illness Recorded Social History No Social History Recorded - Smoking Status Unknown Medical History Includes: Medical History in patient's chart No Medical History Recorded Family History Includes: Family History in patient's chart No Family History Recorded Review of Systems Review of Systems not supported for this document type No Review of Systems Recorded Mental Status No Mental Status Recorded Functional Status No Functional Status Recorded Physical Exam Physical Exam not supported for this document type No Physical Exam Recorded Clinical Notes Includes: Signed Clinical Notes starting from 05/04/2022 No Clinical Notes Recorded
--- OUTSIDE RECORDS SUMMARY | 2024-05-26 11:30 | XMS_ITS | Clinical Summary ---
Author Organization [facility] Nahid Begum Address [address] [place] [address] Care Team Providers Care Jack Frame Tender Name Role Phone Lonny Zamarripa MD Primary Care Provider [phone] Allergies Active Allergy Reactions Criticality Noted Date Comments Penicillins Hives High 07/07/2021 Medications amLODIPine (NORVASC) 5 mg tablet Take 5 mg by mouth daily. Active Calcium Carbonate-Vit D3-Min 600 mg calcium- 400 unit Tablet 1 Tablet daily. Active cyanocobalamin 1,000 mcg Tablet Take 2,000 mcg by mouth daily. Active lovastatin (MEVACOR) 20 mg tablet Take 20 mg by mouth daily. 07/29/2021 Active multivitamin tx with iron and folic acid tablet 18-400 mg-mcg Tablet Take 1 Tablet by mouth daily. Active omeprazole (PriLOSEC) 20 mg Capsule, Delayed Release(E.C.) Take 20 mg by mouth daily. 07/15/2021 Active valACYclovir (VALTREX) 1 gram tablet Take 1,000 mg by mouth. Active glucosamine-mica droitin (ARTHX DS) 500-400 mg Capsule Take 1 Capsule by mouth daily. Active lysine 500 mg tablet Take 1,000 mg by mouth daily. Active DOXYCYCLINE MONOHYDRATE ORAL Take by mouth. Active anastrozole (Arimidex) 1 mg tablet Take 1 Tablet (1 mg) by mouth daily. 90 Tablet 3 01/13/2024 Active Active Problems No known active problems Encounters Date Type Department Care Team Description 05/13/2024 External Device Data ST[facility] ABSTRACTION Provider, Abstract 05/07/2024 External Device Data [facility] ABSTRACTION Provider, Abstract 03/02/2024 1:00 PM DIRECTOR OF CORPORATE RESPONSIBILITY Office Visit [facility] Oncology and Hematology [facility] [address] [place] [address] Kenrick Burnett MD Malignant neoplasm of right breast in female, estrogen receptor positive, unspecified site of breast (CMS/HCC) (Primary Dx) from Last 3 Months Family History Medical History Relation Name Comments Kidney Disease Brother Skin Cancer Brother No Known Problems Child 1 No Known Problems Child 2 Brain Cancer Father Lung Cancer Father Breast Cancer Maternal Grandmother No Known Problems Mother Colon Cancer Sister Relation Name Status Comments Brother Alive Child 1 Alive Child 2 Alive Father Maternal Grandmother Mother Sister Alive Social History Tobacco Use Types Packs/Day Years Used Date Smoking Tobacco: Never Tobacco Cessation:Counseling Given: Not Answered Alcohol Use Standard Drinks/Week Comments Yes 0 (1 standard drink = 0.6 oz pur e alcohol) socially Comments Unknown Sex and Gender Information Value Date Recorded Sex Assigned at Not on file Legal Sex Female 3:56 PM CDT Gender Identity Not on file Sexual Orientation Not on file Last Filed Vital Signs Vital Sign Reading Time Taken Comments Blood Pressure 164/74 03/02/2024 1:02 PM DIRECTOR OF CORPORATE RESPONSIBILITY Pulse 87 03/02/2024 1:02 PM DIRECTOR OF CORPORATE RESPONSIBILITY Temperature 36.7 C (98 F) 03/02/2024 1:02 PM DIRECTOR OF CORPORATE RESPONSIBILITY Respiratory Rate 16 03/02/2024 1:02 PM DIRECTOR OF CORPORATE RESPONSIBILITY Oxygen Saturation 98% 03/02/2024 1:02 PM DIRECTOR OF CORPORATE RESPONSIBILITY Inhaled Oxygen Concentration - - Weight 90.3 kg (199 lb) 03/02/2024 1:02 PM DIRECTOR OF CORPORATE RESPONSIBILITY Height 165.1 cm (5' 5 ) 11/07/2023 9:02 AM CDT Body Mass Index 33.12 11/07/2023 9:02 AM CDT Plan of Treatment Upcoming Encounters Date Type Department Care Team (Late st Contact Info) Description 06/02/2024 3:30 PM DIRECTOR OF CORPORATE RESPONSIBILITY Office Visit [facility] Oncology and Hematology [facility] [address] [place] [address] Kenrick Burnett MD [address] [place] [address] Health Maintenance Due Date Last Done Comments DTAP/TDAP/TD VACCINES (1 - Tdap) 1962 PNEUMOCOCCAL VACCINE 65+ YEA RS (1 of 1 - PCV) 1993 ZOSTER VACCINE (1 of 2) 1993 RSV VACCINE (60+ or ) (1 - 1-dose 75+ series) 2018 INFLUENZA VACCINE (#1) 2023 [place]) Preventative Visit/Annual Wellness Visit 04/15/2024 OSTEOPOROSIS SCREENING Completed , 08/05/2023, 04/03/2021, Additional history exists [facility] [id number] Care Teams Jack Frame Tender Relationship Specialty Start Date End Date Lonny Zamarripa MD [address] [place] [id number] PCP - General Family Practice 11/13/23
--- OUTSIDE RECORDS SUMMARY | 2024-05-26 11:30 | XMS_ITS | Clinical Summary ---
Author Organization [facility] Address [address] [place] [address] Care Team Providers Care Hotel Front Office Manager Name Role Phone Lonny Zamarripa MD Primary Care Provider Jamar SINHA OD, Colby Da Silva Unavailable [phone] Allergies Active Allergy Reactions Criticality Noted Date [...] (08/04/2021): Added automatically from request for surgery [id number] Personal history of colonic polyps 08/04/2021 Overview (08/04/2021): Added automatically from request for surgery [id number] Encounter for screening colonoscopy 08/04/2021 Overview (08/04/2021): Added automatically from request for surgery [id number] 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 Encounters Date Type Department Care Team Description 03/30/2024 Orders Only [facility] [address] [place] [address] Unknown, Notinfile from Last 3 Months Surgical History Surgery Date Site/Laterality Comments BREAST CYST ASPIRATION 09/22/2009 Right OOPHORECTOMY COLONOSCOPY 09/25/2021 REPLACEMENT TOTAL KNEE 01/31/2022 Left BLEPHAROPLASTY 01/31/2017 Bilateral CATARACT EXTRACTION W/ INTRA OCULAR LENS IMPLANT 02/13/2013 - 03/14/2013 Bilateral CHOLECYSTECTOMY 04/15/1999 - 04/14/2000 HYSTERECTOMY 04/15/1999 - 04/14/2000 BREAST BIOPSY 10/04/2023 Right Medical History Medical History Date Comments Hypertension Arthritis Pseudophakia of both eyes Family History Medical History Relation Name Comments Cancer Father Lung cancer Father Breast cancer Maternal Grandmother Cataracts Mother Diabetes Paternal Grandfather Glaucoma Neg Hx Macular degeneration Neg Hx Ovarian cancer Neg Hx Retinal detachment Neg Hx Strabismus Neg Hx Thyroid cancer Neg Hx Thyroid disease Neg Hx Relation Name Status Comments Father Maternal Grandmother Mother Paternal Grandfather Social History Tobacco Use Types Packs/Day Years [...] on file Legal Sex Female 1:27 AM MECHANIC HELPER Gender Identity Not on file Sexual Orientation Not on file Obstetrics History Para Term AB IAB SAB Ectopic Multiple Livin g Live Births 2 2 2 Date Outcome GA Total Labor Labor/2nd/3rd Weight Sex Type Anes PTL Gillian A1 A5 Name Clin Term Term Last Filed Vital Signs Vital Sign Reading [...] 07/29/2023 12:20 PM CDT Plan of Treatment Health Maintenance Due Date Last Done Comments Depression Screening 1945 DTaP/Tdap/Td Vaccine (1 - Tdap) 1954 Hepatitis B Screening 1961 Zoster Vaccine (1 of 2) 1993 Well Visit 65+ 2008 Pneumococcal vaccine 65+ (2 of 2 - PPSV23 or PCV20) 01/04/2016 01/03/2015 Fall Risk Assessment 09/25/2022 09/25/2021 Influenza Vaccine (#1) 2023 7, 01/03/2015, 12/30/2012 Osteoporosis Screening-Bone Density Scan 08/04/2025 08/05/2023, 04/03/2021, 09/13/2017, Additional history exists Medical Devices Implanted Type Area Supervisor Fiberglass Boat Assembly Device Identifier Shelf Expiration Date Model / Serial / Lot Bard Peripheral Vascular Ultraclip Bard 17ga 10cm 2 Trigger Permanent Ultrasound [id number] - [id number] - [id number] Implanted:Qty: 1 on 10/04/2023 by Eloise Pope MD at [facility] Breast Right: Breast Bard Peripheral Vascular 09/09/2025 [id number] Description:Implanted Right Breast 9:00 area 3 cmfn Procedures Procedure Name Priority Date/Time Associated Diagnosis Comments SURGICAL PATHOLOGY Routine 03/30/2024 12:00 AM MECHANIC HELPER DEXA AXIAL SKELETON BONE DENSITY 1 OR MORE SITES Schedule Routine, Read Routine (OP Routine) 08/05/2023 2:44 PM CDT Asymptomatic menopausal state from Last 3 Months or Most Recently Relevant to Health Maintenance Results * Surgical pathology (03/30/2024 12:00 AM MECHANIC HELPER) Skin, shave biopsy 03/30/2024 04/01/2024 7:07 AM MECHANIC HELPER Narrative 04/02/2024 11:55 AM MECHANIC HELPER EPIC results best viewed via link to PDF [facility] [address] [place] [address], [address], [place] [address] [email or web address] Note to Patients: This report may contain [...] FINAL REPORT Patient Information: PATIENT NAME: RU HART SEX: F : 1945 (Age: 79) Specimen Information: COLLECTED: 03/30/2024 RECEIVED: 04/01/2024 REPORTED: 04/02/2024 Submitting Physician Information: Bibiana Contreras [facility], [address] [place], [place] [id number], DERMATOPATHOLOGY REPORT RESULTS DIAGNOSIS: SKIN, RIGHT BUTTOCK, [...] exr/anc ICD-9 A; ZSD.877 Clerical Data A; 56707 The characteristics of special, immunohistochemical, and immunofluorescence stains and in-situ hybridization tests performed by the [facility] were deemed acceptable in ongoing quality assurance tester measures and in compliance with regulations drawn from the Clinical Laboratory Improvement Act jc9635 (CLIA '88). Control reactions for all stains performed were deemed adequate and appropriate by a pathologist prior to evaluation of patient tissue. Some diagnoses were rendered with the assistance of laboratory-developed tests utilizing analyte-specific reagents; the performance characteristic of these tests were determined by [facility] and are not cleared or approved by the [place] Food an Drug administration. Laboratory developed test may only be performed in a facility that is certified by the [facility] as a high-complexity laboratory under CLIA '88. [...] with given history of: z78.0 Screening. Postmenopausal Supervisor Fiberglass Boat Assembly/Model: DNsolution (S/N [id number]) CLINICAL INFORMATION: Current height: 64.5 inches Maximum [...] Miguel Carroll M.D. MF: JOHN Report ID: [id number] Reading Location: [place] [address] Procedure Note Miguel Carroll MD - 08/05/2023 EXAM DESCRIPTION: DEXA AXIAL SKELETON BONE DENSITY 1 OR MORE SITES REASON FOR STUDY: 78 y/o year old F with given history of: z78.0 Screening. Postmenopausal Supervisor Fiberglass Boat Assembly/Model: [employer] SL (S/N [id number]) CLINICAL INFORMATION: Current height: 64.5 inches Maximum [...] Miguel Carroll M.D. MF: JOHN Report ID: [id number] Reading Location: [place] [address] Lonny Zamarripa MD IMG DXA PROCEDURES Alma l Result from Last 3 Months or Most Recently Relevant to Health Maintenance Insurance [facility] Address: [facility] [address] [place] [address] MEDICARE [employer] [facility] Address: [facility] [address] [place] [address] Advance Directives For more information, please contact: [phone] * Full Code (Latest Code Status on File) Date Activated Date Inactivated Comments 09/25/2021 7:53 AM 09/25/2021 1:16 PM * Full Code Date Activated Date Inactivated Comments 09/25/2021 7:14 AM 09/25/2021 7:53 AM Care Teams Hotel Front Office Manager Relationship Specialty Start Date End Date Lonny Zamarripa MD [address] [facility] [address] [place] [address] PCP - General 08/21/16 Colby Roldan III, OD [address] [place] [address] Primary Eye Care Provider Optometry 08/22/22
[2024-05-26 12:41] LABS: Alanine Aminotransferase 21 U/L (6-35); Albumin Level 4.1 g/dL (3.5-5.1); Alkaline Phosphatase 118 U/L (38-126); Anion Gap 10 mmol/L (4-12); Aspartate Amino Transferase 24 U/L (14-36); Bilirubin,Total 0.5 mg/dL (0.2-1.3); Blood Urea Nitrogen 11 mg/dL (7-17); Calcium 9.5 mg/dL (8.4-10.2); Carbon Dioxide 27 mmol/L (22-30); Chloride 104 mmol/L (98-107); Estimated Glomerular Filt Rate > 60; Glucose 97 mg/dL (65-110); Potassium 3.9 mmol/L (3.4-5.0); Sodium 141 mmol/L (137-145)
[2024-05-27 06:53] LABS: CA 15-3 13 U/mL (<32)
== END 2024-05-26 10:23 | disposition home or self-care (01) ==
LOC: ANHLAB 10:23
PROVIDERS: PCP Family Medicine; Visit Provider Internal Medicine Hematology & Oncology
DX: I10 Essential (primary) hypertension (principal); R73.01 Impaired fasting glucose
CPT/HCPCS: 36415; 80053; 83036; 85025; 86300

== ENCOUNTER 2024-10-06 10:06 | Outpatient (CLI) | payer MEDICARE, SELFPAY ==
[2024-10-06 10:45] LABS: Basophils Absolute Auto 0.1 K/mm3 (0.0-0.1); Basophils Percent Auto 0.4 % (0.2-1.2); Eosinophils Absolute Auto 0.1 K/mm3 (0-0.3); Eosinophils Percent Auto 0.8 % (0-4.4); Hematocrit 38.4 % (37.0-47.0); Hemoglobin 12.2 g/dL (12.0-15.0); Immature Granulocyte Absolute 0.07 K/mm3 (0.00-0.031); Immature Granulocyte Percent A 0.5 % (0-0.5); Lymphocytes Absolute Auto 1.86 K/mm3 (0.9-3.2); Mean Corpuscular HGB Conc 31.8 g/dl (32-36); Mean Corpuscular Hemoglobin 29.2 pg (26-34); Mean Corpuscular Volume 91.9 fl (80-100); Mean Platelet Volume 9.1 fl (7.4-10.4); Monocytes Absolute Auto 1.4 K/mm3 (0.1-0.6); Neutrophils Absolute Auto 10.8 K/mm3 (1.3-6.7); Neutrophils Percent Auto 75.3 % (45.5-73.1); Platelet Count Result 397 k/mm3 (150-375); Red Blood Count 4.18 M/mm3 (4.2-5.4); Red Cell Distribution Width 13.5 % (11.5-14.5); White Blood Count 14.4 K/mm3 (4.5-10.0)
[2024-10-06 16:33] LABS: Alanine Aminotransferase 21 U/L (6-35); Albumin Level 4.1 g/dL (3.5-5.1); Alkaline Phosphatase 103 U/L (38-126); Anion Gap 7 mmol/L (4-12); Aspartate Amino Transferase 35 U/L (14-36); Bilirubin,Total 0.4 mg/dL (0.2-1.3); Blood Urea Nitrogen 13 mg/dL (7-17); Calcium 9.1 mg/dL (8.4-10.2); Carbon Dioxide 26 mmol/L (22-30); Chloride 106 mmol/L (98-107); Estimated Glomerular Filt Rate 54; Glucose 101 mg/dL (65-110); Potassium 3.9 mmol/L (3.4-5.0); Sodium 139 mmol/L (137-145); Total Protein 7.6 g/dL (6.3-8.2)
[2024-10-09 10:14] LABS: CA 15-3. 11 U/mL (<32)
== END 2024-10-06 10:07 | disposition home or self-care (01) ==
LOC: ANHLAB 10:06
PROVIDERS: PCP Family Medicine; Visit Provider Internal Medicine Hematology & Oncology
DX: C50.911 Malignant neoplasm of unspecified site of right female breast (principal); Z17.0 Estrogen receptor positive status [ER+]
CPT/HCPCS: 36415; 80053; 85025; 86300

== ENCOUNTER 2024-11-30 09:03 | Outpatient (CLI) | payer MEDICARE, SELFPAY ==
--- OUTSIDE RECORDS SUMMARY | 2024-11-30 09:24 | XMS_ITS | Clinical Summary ---
Author Organization [facility] Address [address] [place] [address] Care Team Providers Care Yardage Caller Name Role Phone Lonny Zamarripa MD Primary Care Provider Jamar SINHA OD, Colby Da Silva Unavailable [phone] Allergies Active Allergy Reactions Criticality Noted Date [...] (08/04/2021): Added automatically from request for surgery [id number] Personal history of colonic polyps 08/04/2021 Overview (08/04/2021): Added automatically from request for surgery [id number] Encounter for screening colonoscopy 08/04/2021 Overview (08/04/2021): Added automatically from request for surgery [id number] 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 Encounters Date Type Department Care Team Description 10/12/2024 10:38 AM CDT - 10/12/2024 11:59 PM CDT Hospital Encounter [facility] [address] [place], [place] [id number] Encounter for screening mammogram for malignant neoplasm of breast Discharge Disposition: Discharge to home or self care from Last 3 Months Surgical History Surgery Date Site/Laterality Comments BREAST CYST ASPIRATION 09/22/2009 Right OOPHORECTOMY COLONOSCOPY 09/25/2021 REPLACEMENT TOTAL KNEE 01/31/2022 Left BLEPHAROPLASTY 01/31/2017 Bilateral CATARACT EXTRACTION W/ INTRAOCULAR LENS IMPLANT 02/13/2013 - 03/14/2013 Bilateral CHOLECYSTECTOMY 04/15/1999 - 04/14/2000 HYSTERECTOMY 04/15/1999 - 04/14/2000 BREAST BIOPSY 10/04/2023 Right MASTECTOMY 12/15/2023 - 01/13/2024 Right no chemo/radiation Medical History Medical History Date Comments Hypertension [...] more drinks on one occasion? Never 09/25/2021 Comments No Sex and Gender Information Value Date Recorded Sex Assigned at Not on file Legal Sex Female 1:27 AM JANITOR HEAD Gender Identity Not on file Sexual Orientation [...] CDT Inhaled Oxygen Concentration - - Weight 89.4 kg (197 lb) 10/12/2024 10:46 AM CDT Height 165.1 cm (5' 5) 10/12/2024 10:46 AM CDT Body Mass Index 32.78 10/12/2024 10:46 AM CDT Plan of Treatment Health Maintenance Due Date Last Done Comments Depression Screening 1945 DTaP/Tdap/Td Vaccine (1 - Tdap) 1954 Hepatitis B Screening 1961 Zoster Vaccine (1 of 2) 1993 Well Visit 65+ 2008 Pneumococcal vaccine 65+ (2 of 2 - PCV20 or PCV21) 01/04/2016 01/03/2015 Fall Risk Assessment 09/25/2022 09/25/2021 Influenza Vaccine (#1) 2024 7, 01/03/2015, 12/30/2012 Osteoporosis Screening-Bone Density Scan 08/04/2025 08/05/2023, 04/03/2021, 09/13/2017, Additional history exists Medical Devices Implanted Type Area Veterinary X Ray Operator Device Identifier Shelf Expiration Date Model / Serial / Lot Bard Peripheral Vascular Ultraclip Bard 17ga 10cm 2 Trigger Permanent Ultrasound [id number] - [id number] Implanted:Qty: 1 on 10/04/2023 by Eloise Pope MD at [facility] Breast Right: Breast Bard Peripheral Vascular 09/09/2025 [id number] / [id number] Description:Implanted Right Breast 9:00 area 3 cmfn Procedures Procedure Name Priority Date/Time Associated Diagnosis Comments SCREENING MAMMOGRAM LEFT W MINA UNILATERAL ONLY Schedule Routine, Read Routine (OP Routine) 10/12/2024 10:50 AM CDT Encounter for screening mammogram for malignant neoplasm of breast DEXA AXIAL SKELETON BONE DENSITY 1 OR MORE SITES Schedule Routine, Read Routine (OP Routine) 08/05/2023 2:44 PM CDT Asymptomatic menopausal state from Last 3 Months or Most Recently Relevant to Health Maintenance Results * Screening Mammogram Left W Mina Unilateral Only (10/12/2024 10:50 AM CDT) Anatomical Region Laterality Modality Breast Left Mammography Impressions 10/12/2024 6:58 PM CDT No evidence of malignancy. OVERALL BI-RADS FINAL ASSESSMENT: 1 - Negative RECOMMENDATION: Recommend left breast annual screening mammography. Narrative 10/12/2024 6:58 PM CDT EXAMINATION: Screening Mammogram Left W Mina Unilateral Only: 10/12/2024 COMPARISON: Relevent prior studies available at the time of interpretation were reviewed, including the most recent mammogram on: 09/13/2023. TECHNIQUE: Mammography was performed with 2D and digital breast tomosynthesis (DBT) images of the left breast. CAD was utilized. BREAST PARENCHYMAL COMPOSITION: There are scattered areas of fibroglandular density. FINDINGS: There is no suspicious mass, calcification, or architectural distortion. Kenrick Burnett MD IMG MAMMO PROCEDURES Final Res ult * Dexa Axial Skeleton Bone Density 1 or 2 Site (08/05/2023 2:44 PM CDT) Anatomical Region Laterality Modality Body N/A Other 08/05/2023 7:29 PM CDT Narrative 08/05/2023 7:30 PM CDT EXAM DESCRIPTION: DEXA AXIAL SKELETON BONE DENSITY 1 OR MORE SITES REASON FOR STUDY: 78 y/o year old F with given history of: z78.0 Screening. Postmenopausal Veterinary X Ray Operator/Model: René[employer] SL (S/N [id number]) CLINICAL INFORMATION: Current height: 64.5 inches Maximum [...] Miguel Carroll M.D. MF: JOHN Report ID: [id number] Reading Location: [place] [address] Procedure Note Miguel Carroll MD - 08/05/2023 EXAM DESCRIPTION: DEXA AXIAL SKELETON BONE DENSITY 1 OR MORE SITES REASON FOR STUDY: 78 y/o year old F with given history of: z78.0 Screening. Postmenopausal Veterinary X Ray Operator/Model: RenéSim SL (S/N [id number]) CLINICAL INFORMATION: Current height: 64.5 inches Maximum [...] Miguel Carroll M.D. MF: JOHN Report ID: [id number] Reading Location: [place] [address] Lonny Zamarriap MD IMG DXA PROCEDURES Alma l Result from Last 3 Months or Most Recently Relevant to Health Maintenance Insurance [facility] Address: [facility] [address] [place] [address] [facility] Address: [address] [address] [place] [address] [facility] Address: [address] [address] [place] [address] Advance Directives For more information, please contact: [phone] * Full Code (Latest Code Status on File) Date Activated Date Inactivated Comments 09/25/2021 7:53 AM 09/25/2021 1:16 PM * Full Code Date Activated Date Inactivated Comments 09/25/2021 7:14 AM 09/25/2021 7:53 AM Care Teams Yardage Caller Relationship Specialty Start Date End Date Lonny Zamarripa MD [address] [facility] [address] [place] [address] PCP - General 08/21/16 Colby Roldan III, OD [address] [place] [address] Primary Eye Care Provider Optometry 08/22/22
--- OUTSIDE RECORDS SUMMARY | 2024-11-30 09:24 | XMS_ITS | Clinical Summary ---
Author Organization [facility] Nahid Begum Address [address] [place] [address] Care Team Providers Care Lumber Loader Name Role Phone Lonny Zamarripa MD Primary Care Provider [phone] Allergies Active Allergy Reactions Criticality Noted Date [...] mg) by mouth daily. 90 Tablet 3 10/14/2024 Active Active Problems No known active problems Encounters Date Type Department Care Team Description 10/28/2024 External Device Data STL ABSTRACTION Provider, Abstract 10/28/2024 External Device Data STL ABSTRACTION Provider, Abstract 10/28/2024 External Device Data STL ABSTRACTION Provider, Abstract 10/14/2024 11:00 AM CDT Office Visit [facility] Oncology and Hematology - [place] [address] [place] [address] Kenrick Burnett MD Malignant neoplasm of right breast in female, estrogen receptor positive, unspecified site of breast (CMS/HCC) (Primary Dx) 10/13/2024 Orders Only [facility] - [place] [address] [place] [address] Kenrick Burnett MD 10/07/2024 Orders Only [facility] - [place] [address] [place] [address] Kenrick Burnett MD 10/06/2024 Orders Only [facility] - [place] [address] [place] [address] Kenrick Burnett MD 09/30/2024 External Device Data STL ABSTRACTION Provider, Abstract 09/29/2024 External Device Data STL ABSTRACTION Provider, Abstract 09/08/2024 External Device Data STL ABSTRACTION Provider, Abstract 09/02/2024 External Device Data STL ABSTRACTION Provider, Abstract 09/01/2024 External Device Data STL ABSTRACTION Provider, Abstract from Last 3 Months Family History Medical [...] Sign Reading Time Taken Comments Blood Pressure 136/76 10/14/2024 10:51 AM CDT Pulse 74 10/14/2024 10:48 AM CDT Temperature 36.5 C (97.7 F) 10/14/2024 10:48 AM CDT Respiratory Rate 15 10/14/2024 10:48 AM CDT Oxygen Saturation 98% 10/14/2024 10:48 AM CDT Inhaled Oxygen Concentration - - Weight 89.1 kg (196 lb 6.4 oz) 10/14/2024 10:48 AM CDT Height 165.1 cm (5' 5) 11/07/2023 9:02 AM CDT Body Mass Index 32.68 11/07/2023 9:02 AM CDT Plan of Treatment Upcoming Encounters Date Type Department Care Team (Late st Contact Info) Description 01/29/2025 9:45 AM CDT Office Visit [facility] On[facility] and Hematology - [place] [address] [facility] [address] [place] [address] Kenrick Burnett MD [address] [facility] [address] [place] [address] Health Maintenance Due Date Last Done Comments DTAP/TDAP/TD VACCINES (1 - Tdap) 1962 PNEUMOCOCCAL VACCINE 50+ YEA RS (1 of 1 - PCV) 1993 ZOSTER VACCINE (1 of 2) 1993 RSV VACCINE (60+ or ) (1 - 1-dose 75+ series) 2018 INFLUENZA VACCINE (#1) 2024 OSTEOPOROSIS SCREENING 08/04/2028 , 08/05/2023, 04/03/2021, Additional history exists Procedures Procedure Name Priority Date/Time Associated Diagnosis Comments MAMMO SCREENING UNILATERAL LEFT Routine 10/12/2024 8:22 AM CDT CBC WITH DIFFERENTIAL Routine 10/06/2024 1:05 PM CDT COMPREHENSIVE METABOLIC PANEL Routine 10/06/2024 11:02 AM CDT from Last 3 Months Results * MAMMO SCREENING UNILATERAL LEFT (10/12/2024 8:22 AM CDT) Anatomical Region Laterality Modality Breast Left Mammography us Kenrick Burnett MD MAMMO ORDERABLES Final Result * CBC WITH DIFFERENTIAL (10/06/2024 1:05 PM CDT) Blood us Kenrick Burnett MD HEMATOLOGY ORDERABLES Final Res ult * COMPREHENSIVE METABOLIC PANEL (10/06/2024 11:02 AM CDT) Blood us Kenrick Burnett MD CHEMISTRY ORDERABLES Final Resu lt from Last 3 Months Insurance DUAL COMPLETE PPO [facility] [id number] Care Teams Lumber Loader Relationship Specialty Start Date End Date Lonny Zamarripa MD [address] [facility] [address] [place] [address] PCP - General Family Practice 11/13/23
--- OUTSIDE RECORDS SUMMARY | 2024-11-30 09:25 | XMS_ITS | Clinical Summary ---
Author Organization [facility] Address Formerly [facility] [place] [address] Care Team Providers Care Claims Associate Name Role Phone Lonny Zamarripa MD Primary Care Provider [phone] Allergies Active Allergy Reactions Criticality Noted Date [...] 9:05 AM CDT Height 165.1 cm (5' 5) 08/04/2021 9:05 AM CDT Body Mass Index 33.25 08/04/2021 9:05 AM CDT Plan of Treatment Health Maintenance Due Date Last Done Comments DTaP, Tdap and Td Vaccines ( 1 - Tdap) 1962 Zoster Vaccines (1 of 2) 1993 Annual Medicare Wellness Visit 2008 Dexa Scan (General) 2008 Pneumococcal Vaccine: 50+ Years (2 of 2 - PPSV23) 01/04/2016 01/03/2015 RSV Immunization or 60+ Years (1 - 1-dose 75+ series) 2018 COVID-19 Vaccine (4 - 2023-2 5 season) 2023 02/13/2021, 06/08/2020, 05/17/2020 Meningococcal B Vaccine Aged Out No l onger eligible based on patient's age to complete this topic Meningococcal Vaccine Aged Out No sabino queenie eligible based on patient's age to complete this topic RSV Immunizations Under 20 Months Aged Out No longer eligible b ased on patient's age to [place] [id number] [facility] Care Teams Claims Associate Relationship Specialty Start Date End Date Lonny Zamarripa MD [address] [place] [address] PCP - General FAMILY PRACTICE 07/07/21
[2024-11-30 09:50] LABS: Alanine Aminotransferase 19 U/L (6-35); Albumin Level 4.2 g/dL (3.5-5.1); Alkaline Phosphatase 109 U/L (38-126); Anion Gap 8 mmol/L (4-12); Aspartate Amino Transferase 30 U/L (14-36); Bilirubin,Total 0.5 mg/dL (0.2-1.3); Blood Urea Nitrogen 13 mg/dL (7-17); Calcium 9.5 mg/dL (8.4-10.2); Carbon Dioxide 25 mmol/L (22-30); Chloride 107 mmol/L (98-107); Estimated Glomerular Filt Rate 58; Glucose 112 mg/dL (65-110); Potassium 4.1 mmol/L (3.4-5.0); Sodium 140 mmol/L (137-145); Total Protein 7.8 g/dL (6.3-8.2)
[2024-11-30 10:22] LABS: Hemoglobin A1C 5.9 % (<5.7)
== END 2024-11-30 09:04 | disposition home or self-care (01) ==
LOC: ANHLAB 09:06
PROVIDERS: PCP Family Medicine; Visit Provider Family Medicine
DX: R73.01 Impaired fasting glucose (principal); I10 Essential (primary) hypertension
CPT/HCPCS: 36415; 80053; 83036

== ENCOUNTER 2025-01-12 08:39 | Emergency (ER) | payer MEDICARE, SELFPAY ==
[2025-01-12] VITALS (7 sets, daily range): BP systolic 111–155; BP diastolic 62–95; PULSE 63–77; RESP 14–20; TEMP 36.4; O2SAT 93–100
--- OUTSIDE RECORDS SUMMARY | 2025-01-12 08:51 | XMS_ITS | Clinical Summary ---
Author Organization [facility] Address [address] [place] [address] Care Team Providers Care Wool Broker Name Role Phone Lonny Zamarripa MD Primary Care Provider Jamar SINHA OD, Colby Da Silva Unavailable [phone] Allergies Active Allergy Reactions Criticality Noted Date [...] (08/04/2021): Added automatically from request for surgery [id number] Personal history of colonic polyps 08/04/2021 Overview (08/04/2021): Added automatically from request for surgery [id number] Encounter for screening colonoscopy 08/04/2021 Overview (08/04/2021): Added automatically from request for surgery [id number] 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 Encounters Date Type Department Care Team Description 10/12/2024 10:38 AM CDT - 10/12/2024 11:59 PM CDT Hospital Encounter [facility] [address] [place], [place] [id number] Encounter for screening mammogram for malignant neoplasm [...] on file 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 Gender Identity Not on file Sexual Orientation [...] history exists Medical Devices Implanted Type Area High [employer] Music Director Device Identifier Shelf Expiration Date Model / Serial / Lot Bard Peripheral Vascular Ultraclip Bard 17ga 10cm 2 Trigger Permanent Ultrasound [id number] - [id number] - [id number] Implanted:Qty: 1 on 10/04/2023 by Eloise Pope MD at [facility] Breast Right: Breast Bard Peripheral Vascular 09/09/2025 [id number] / [id number] Description:Implanted Right Breast 9:00 area 3 [...] with given history of: z78.0 Screening. Postmenopausal High School Music Director/Model: Cryptmint SL (S/N [id number]) CLINICAL INFORMATION: Current height: 64.5 inches Maximum [...] Miguel Carroll M.D. MF: JOHN Report ID: [id number] Reading Location: [place] [address] Procedure Note Miguel Carroll MD - 08/05/2023 EXAM DESCRIPTION: DEXA AXIAL SKELETON BONE DENSITY 1 OR MORE SITES REASON FOR STUDY: 78 y/o year old F with given history of: z78.0 Screening. Postmenopausal High School Music Director/Model: Cryptmint SL (S/N [id number]) CLINICAL INFORMATION: Current height: 64.5 inches Maximum [...] Miguel Carroll M.D. MF: JOHN Report ID: [id number] Reading Location: [place] [address] Lonny Zamarripa MD IMG DXA PROCEDURES Alma l Result from Last 3 Months or Most Recently Relevant to Health Maintenance Insurance [facility] MEDICARE [facility] MED[facility] Address: [facility] [address] [place] [address] [facility] MEDICARE [facility] MEDIC[facility] Address: [address] [address] [place] [address] [facility] MEDICARE [facility] Address: [address] [address] [place] [address] Advance Directives For more information, please contact: [phone] * Full Code (Latest Code Status on File) Date Activated Date Inactivated Comments 09/25/2021 7:53 AM 09/25/2021 1:16 PM * Full Code Date Activated Date Inactivated Comments 09/25/2021 7:14 AM 09/25/2021 7:53 AM Care Teams Wool Broker Relationship Specialty Start Date End Date Lonny Zamarripa MD [address] [facility] [address] [place] [address] PCP - General 08/21/16 Colby Roldan III, OD [address] [place] [address] Primary Eye Care Provider Optometry 08/22/22
--- OUTSIDE RECORDS SUMMARY | 2025-01-12 08:51 | XMS_ITS | Clinical Summary ---
Author Organization [facility] Nahid Begum Address [address] [place] [address] Care Team Providers Care Lacemaker Name Role Phone Lonny Zamarripa MD Primary Care Provider [phone] Allergies Active Allergy Reactions Criticality Noted Date [...] Encounters Date Type Department Care Team Description 12/15/2024 External Device Data STL ABSTRACTION Provider, Abstract 12/02/2024 External Device Data STL ABSTRACTION Provider, Abstract 10/28/2024 External Device Data STL ABSTRACTION Provider, Abstract 10/28/2024 External Device Data STL ABSTRACTION Provider, Abstract 10/28/2024 External Device Data STL ABSTRACTION Provider, Abstract 10/14/2024 11:00 AM CDT Office Visit [facility] Oncology and Hematology [facility] [address] [place] [address] Kenrick Burnett MD Malignant neoplasm of right breast in female, estrogen receptor positive, unspecified site of breast (CMS/HCC) (Primary Dx) 10/13/2024 Orders Only [facility] Oncology and Hematology [facility] [address] [place] [address] Kenrick Burnett MD from Last 3 Months Family History Medical [...] Description 01/29/2025 9:45 AM CDT Office Visit [facility] Oncology and Hematology - [place] [address] [facility] [address] [place] [address] Kenrick Burnett MD [address] [facility] [address] [place] [address] Health Maintenance Due Date Last Done Comments DTAP/TDAP/TD VACCINES (1 - Tdap) 1962 PNEUMOCOCCAL VACCINE 50+ YEA RS (1 of 1 - PCV) 1993 ZOSTER VACCINE (1 of 2) 1993 RSV VACCINE (60+ or ) (1 - 1-dose 75+ series) 2018 INFLUENZA VACCINE (#1) 2024 OSTEOPOROSIS SCREENING 08/04/2028 4, 08/05/2023, 04/03/2021, Additional history exists Procedures Procedure Name Priority Date/Time Associated Diagnosis Comments MAMMO SCREENING UNILATERAL LEFT Routine 10/12/2024 8:22 AM CDT from Last 3 Months Results * MAMMO SCREENING UNILATERAL LEFT (10/12/2024 8:22 AM CDT) Anatomical Region Laterality Modality Breast Left Mammography Kenrick Burnett MD MAMMO ORDERABLES Final Result from Last 3 Months Insurance [facility] DUAL COMPLETE PPO DSNP [facility] [id number] Care Teams Lacemaker Relationship Specialty Start Date End Date Lonny Zamarripa MD [address] [facility] [address] [place] [address] PCP - General Family Practice 11/13/23
--- NOTE | 2025-01-12 08:55 | ED.GENADULT ---
HPI - General Adult General Chief complaint: Nausea/Vomiting/Diarrhea Stated complaint: n/v/d Time Seen by Provider: 01/12/25 08:41 History of Present Illness HPI narrative: 79-year-old female presents emergency department for evaluation for nausea vomiting diarrhea that has been ongoing since Saturday morning. Patient does report some abdominal discomfort but denies pain, patient describes nausea. Patient has had decreased p.o. intake since Saturday. Patient did have further emesis this morning. Patient is resting comfortably at time of evaluation. Patient does have present if history of hypertension, high cholesterol, diverticulosis and hysterectomy Related Data Home Medications ?Medication ?Instructions ?Recorded ?Confirmed ?Last Taken ?Type Caltrate with Vitamin D3 1 tab-cap PO DAILY 09/17/19 12/30/24 12/29/23 History Glucosamine Chondroitin 1 tab-cap PO BID 09/17/19 12/30/24 12/29/23 History L-Lysine 1 tab-cap PO DAILY 09/17/19 12/30/24 Unknown History One-A-Day Women's 50 Plus 1 tab-cap PO DAILY 09/17/19 12/30/24 12/29/23 History cyanocobalamin (vitamin B-12) 1 tab-cap PO BID 09/17/19 12/30/24 12/29/23 History anastrozole 1 mg tablet 1 mg PO HS 11/14/23 12/30/24 Unknown History acetaminophen 650 mg 1,300 mg PO Q12H PRN Pain 12/20/23 12/30/24 Unknown History tablet,extended release Held on 01/01/24. Instructions: Resume on 01/02/24. Allergies Allergy/AdvReac Type Severity Reaction Status Date / Time JERI Inhibitors Allergy Unknown Cough Verified 12/15/24 09:57 Penicillins Allergy Unknown hives Verified 12/15/24 09:57 Review of Systems Review of Systems: All systems reviewed & are unremarkable except as noted in HPI and below PMFSH Past Medical History Medical History Invasive ductal carcinoma of breast Hyperlipidemia Obesity Left knee DJD Right knee DJD IFG (impaired fasting glucose) Diverticulosis Colon polyp Tinnitus Tear of meniscus of left knee Cataract Fracture of foot bone, left, closed [place] (obstructive sleep apnea) Osteopenia Essential (primary) hypertension Dyslipidemia Chronic GERD Surgical History Surgical History S/P total knee arthroplasty Left TKA 01/31/22- Dr. Pittman History of hysterectomy History of eye surgery cataract surgery and eyelid lift History of knee surgery LT meniscus tear repair Family History Family History Mother Hypertension Family history of Alzheimer's disease Family history of dementia History of stroke Sibling Family history of kidney disease Carcinoma of colon Family history of coronary artery disease Family history of renal failure History of colon cancer Father Family history of lung cancer Social History Social History Social History: Smoking status: Never smoker Second hand tobacco smoke exposure: Yes (over 30 years ago) Additional smoking assessment comments: DENIES ANY FORM OF TOBACCO USE Alcohol intake: current Drinks per week: 3 Alcohol use details: Socially Substance use: never Substance use type: does not use Do You Feel Safe in your Home?: Yes Lack of Transportation: No Lack of Food: Never True Current Housing: I Have Housing Concerned About Future Housing: No Difficulty Paying Gas/Electric Bills: No Difficulty Paying for Meds: No Currently Unemployed: No Education: High School Diploma/GED Difficulty w/ Childcare or Family Care: No Living arrangements: with family Occupation/Education: retired Gender identity (if verbalized by the patient): Female Sexual Orientation (if Verbalized by the Patient): Straight or Heterosexual Spiritual care concerns: No Exam Narrative: APPEARANCE: Well appearing, no pain, no distress, well-nourished. HEAD: normocephalic, atraumatic. EYES: PERRLA/EOMI, conjunctivae clear. NOSE: Normal no drainage EARS:TMS clear with good light reflex. THROAT: Pharynx clear, no exudate. NECK: Supple. No adenopathy, no masses. RESPIRATORY: Airway patent, respirations nonlabored. Clear to auscultation bilaterally, no rales, rhonchi, wheezing. CARDIOVASCULAR: Regular rate and rhythm without murmurs rubs or gallops. ABDOMINAL: Soft, nontender, nondistended, normal bowel sounds MUSCULOSKELETAL: Moves all extremities. Strength/ROM intact, No edema, No calf tenderness. NEURO: Alert. Cranial nerves II through XII intact. Good gait. Good coordination SKIN: Warm, dry. Normal Color Course Vital Signs Vital signs: Vital Signs Temperature 97.5 F L 01/12/25 08:47 Pulse Rate 77 01/12/25 08:47 Respiratory Rate 14 01/12/25 08:47 Blood Pressure 124/66 01/12/25 08:47 Pulse Oximetry 99 01/12/25 08:47 Oxygen Delivery Room Air 01/12/25 08:47 Temperature 97.5 F L 01/12/25 08:47 Pulse Rate 71 01/12/25 12:31 Respiratory Rate 20 01/12/25 12:31 Blood Pressure 111/95 H 01/12/25 12:31 Pulse Oximetry 100 01/12/25 12:31 Oxygen Delivery Room Air 01/12/25 08:47 Medical Decision Making MDM Narrative Medical decision making narrative: 79-year-old female presents to emergency department for evaluation for nausea vomiting this morning. Patient denies any current abdominal pain. Patient is currently afebrile with no leukocytosis hemoglobin of 13.2. Patient has no significant abnormalities on her CMP. Patient does have a mild FRITZ with creatinine 1.1 which is higher than her baseline of 1.0. Patient was treated with a L of lactated Ringer's. Lipase is within normal limits. UA was negative for infection. Urine culture was ordered due to 6-10 white blood cells and being leukocytosis trace positive. On re-evaluation patient states she does feel improved. Patient was comfortable plan for discharge to home with instructions for clear liquid diet and Zofran as needed for nausea control. Suspect viral etiology. Low concern for colitis, diverticulitis, appendicitis. Patient was updated the results of her workup patient was comfortable with plan for discharge and close follow-up. Patient was also comfortable on reasons to return to the emergency department. Differential Diagnosis Differential Diagnosis: Appendicitis, colitis, diverticulitis, small-bowel obstruction, dehydration, viral etiology, UTI Vital Signs Vital Signs: Vital Signs Temperature 97.5 F L 01/12/25 08:47 Pulse Rate 77 01/12/25 08:47 Respiratory Rate 14 01/12/25 08:47 Blood Pressure 124/66 01/12/25 08:47 Pulse Oximetry 99 01/12/25 08:47 Oxygen Delivery Room Air 01/12/25 08:47 Temperature 97.5 F L 01/12/25 08:47 Pulse Rate 71 01/12/25 12:31 Respiratory Rate 20 01/12/25 12:31 Blood Pressure 111/95 H 01/12/25 12:31 Pulse Oximetry 100 01/12/25 12:31 Oxygen Delivery Room Air 01/12/25 08:47 Lab Data Lab results reviewed: Yes I reviewed the patient's lab results. 01/12/25 08:49 01/12/25 08:49 Labs: Lab Results 01/12/25 01/12/25 Range/Units 08:49 10:14 WBC 5.5 (4.5-10.0) K/mm3 RBC 4.52 (4.2-5.4) M/mm3 Hgb 13.2 (12.0-15.0) g/dL Hct 39.6 (37.0-47.0) % MCV 87.6 (80-100) fl MCH 29.2 (26-34) pg MCHC 33.3 (32-36) g/dl RDW 14.3 (11.5-14.5) % Plt Count 294 (150-375) k/mm3 MPV 9.2 (7.4-10.4) fl Immature Gran % (Auto) 0.5 (0-0.5) % Neut % (Auto) 58.9 (45.5-73.1) % Lymph % (Auto) 26.1 (18.3-44.2) % Otoe % (Auto) 13.8 H (2.6-8.5) % Eos % (Auto) 0.2 (0-4.4) % Baso % (Auto) 0.5 (0.2-1.2) % Lymph # (Auto) 1.44 (0.9-3.2) K/mm3 Otoe # (Auto) 0.8 H (0.1-0.6) K/mm3 Eos # (Auto) 0.0 (0-0.3) K/mm3 Baso # (Auto) 0.0 (0.0-0.1) K/mm3 Abs Immat Gran (auto) 0.03 (0.00-0.031) K/mm3 Absolute Neuts (auto) 3.3 (1.3-6.7) K/mm3 Absolute Nucleated RBC 0.000 (0.0-0.012) K/mm3 Nucleated RBC % 0.0 (0.0-0.2) % Sodium 135 L (137-145) mmol/L Potassium 3.5 (3.4-5.0) mmol/L Chloride 105 (98-107) mmol/L Carbon Dioxide 17 L (22-30) mmol/L Anion Gap 13 H (4-12) mmol/L BUN 12 (7-17) mg/dL Creatinine 1.11 H (0.7-1.0) mg/dL Estim Creat Clear Calc 39 ml/min Estimated GFR 47 L (59 - ) Glucose 120 H (65-110) mg/dL Calcium 8.9 (8.4-10.2) mg/dL Total Bilirubin 0.5 (0.2-1.3) mg/dL AST 34 (14-36) U/L ALT 25 (6-35) U/L Alkaline Phosphatase 114 (38-126) U/L Total Protein 7.5 (6.3-8.2) g/dL Albumin 4.2 (3.5-5.1) g/dL Lipase 92 (23-300) U/L Urine Color Yellow (Yellow) Urine Appearance Clear (Clear) Urine pH 7.0 (5.0-9.0) Ur Specific [place] 1.004 (1.001-1.035) Urine Protein Negative (Negative) mg/dL Urine Glucose (UA) Negative (Negative) mg/dL Urine Ketones Negative (Negative) mg/dL Ur Blood (Man) Negative (Negative) Urine Nitrate Negative (Negative) Urine Bilirubin Negative (Negative) Urine Urobilinogen 0.2 (<2.0) mg/dL Add Ur Microanalysis Reviewed Leukocyte Esterase Rfl 1+ H (Negative) CAMMIE/UL Urine RBC 0-2 (0-2) /hpf Urine WBC 6-10 H (0-3) /hpf Ur Squamous Epith Cells None seen (Few) /hpf Urine Bacteria None seen /hpf Urine Casts 0-2 Discharge Plan Discharge Clinical Impression: Nausea & vomiting Patient Disposition: Home Condition: Stable Instructions: Antibiotic Form, Clear Liquid Diet (ED), Acute Nausea and Vomiting (ED), Abdominal Pain (ED) Additional Instructions: Clear liquid diet for the next 1-3 days, Zofran as needed for nausea control. Have close follow-up with your primary care physician. If you have any worsening symptoms and please call or return to the emergency department. Patient Language: Belgian Prescriptions: New ondansetron 4 mg tablet,disintegrating 4 mg PO Q8H PRN (Reason: nausea and vomiting) Qty: 14 0RF No Action Caltrate with Vitamin D3 1 tab-cap PO DAILY Glucosamine Chondroitin 1 tab-cap PO BID L-Lysine 1 tab-cap PO DAILY One-A-Day Women's 50 Plus 1 tab-cap PO DAILY cyanocobalamin (vitamin B-12) 1 tab-cap PO BID valacyclovir 1 gram tablet See Rx Instructions .ROUTE .COMPLEX Qty: 12 1RF Dose Instruction: TAKE 2 TABLETS BY MOUTH AND REPEAT IN 12 HOURS Rx Instructions: TAKE 2 TABLETS BY MOUTH AND REPEAT IN 12 HOURS anastrozole 1 mg tablet 1 mg PO HS acetaminophen 650 mg Tablet Extended Release 1,300 mg PO Q12H PRN (Reason: Pain) omeprazole 20 mg capsule,delayed release(DR/EC) 20 mg PO DAILY Qty: 90 3RF valsartan 320 mg tablet 320 mg PO DAILY Qty: 90 3RF Patient Comments: TAKES AT HS Rx Instructions: PT TAKES AT HS amlodipine 5 mg tablet See Rx Instructions .ROUTE .COMPLEX Qty: 90 2RF Dose Instruction: TAKE 1 TABLET BY MOUTH DAILY Patient Comments: TAKES AT HS Rx Instructions: TAKE 1 TABLET BY MOUTH DAILY lovastatin 20 mg tablet 20 mg PO DAILY Qty: 90 2RF Patient Comments: TAKES AT HS Follow-up/Referrals: Lonny Zamarripa MD [Primary Care Provider, Family Practice]
[2025-01-12 09:05] LABS: Hematocrit 39.6 % (37.0-47.0); Hemoglobin 13.2 g/dL (12.0-15.0); Immature Granulocyte Percent A 0.5 % (0-0.5); Lymphocytes Absolute Auto 1.44 K/mm3 (0.9-3.2); Mean Corpuscular HGB Conc 33.3 g/dl (32-36); Mean Corpuscular Hemoglobin 29.2 pg (26-34); Mean Corpuscular Volume 87.6 fl (80-100); Nucleated Red Blood Cells Absolute Auto 0.000 K/mm3 (0.0-0.012); Nucleated Red Blood Cells Perc 0.0 % (0.0-0.2); Platelet Count Result 294 k/mm3 (150-375); Red Blood Count 4.52 M/mm3 (4.2-5.4); White Blood Count 5.5 K/mm3 (4.5-10.0)
[2025-01-12] MEDS: LACTATED RINGERS 1,000 ML 999 ML IV CONT (09:09)
[2025-01-12] MEDS: ONDANSETRON INJ 4 MG/2 ML VIAL IV PUSH (09:09)
--- OUTSIDE RECORDS SUMMARY | 2025-01-12 09:19 | XMS_ITS | Clinical Summary ---
Author Organization [facility] Address [address] [place] [address] Care Team Providers Care Statistical Machine Mechanic Name Role Phone Lonny Zamarripa MD Primary Care Provider Jamar SINHA OD, Colby Da Silva Unavailable [phone] Allergies Active Allergy Reactions Criticality Noted Date [...] (08/04/2021): Added automatically from request for surgery [id number] Personal history of colonic polyps 08/04/2021 Overview (08/04/2021): Added automatically from request for surgery [id number] Encounter for screening colonoscopy 08/04/2021 Overview (08/04/2021): Added automatically from request for surgery [id number] 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 Encounters Date Type Department Care Team Description 10/12/2024 10:38 AM CDT - 10/12/2024 11:59 PM CDT Hospital Encounter [facility] [address] [place], [place] [id number] Encounter for screening mammogram for malignant neoplasm [...] on file 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 Postmenopausal Spool Fixer/Model: [employer] SL (S/N [id number]) CLINICAL INFORMATION: Current height: 64.5 inches Maximum [...] Miguel Carroll M.D. MF: JOHN Report ID: [id number] Reading Location: [place] [address] Procedure Note Miguel Carroll MD - 08/05/2023 EXAM DESCRIPTION: DEXA AXIAL SKELETON BONE DENSITY 1 OR MORE SITES REASON FOR STUDY: 78 y/o year old F with given history of: z78.0 Screening. Postmenopausal Spool Fixer/Model: [employer] SL (S/N [id number]) CLINICAL INFORMATION: Current height: 64.5 inches Maximum [...] Miguel Carroll M.D. MF: JOHN Report ID: [id number] Reading Location: [place] [address] Lonny Zamarripa MD IMG DXA PROCEDURES [place] Result from Last 3 Months or Most Recently Relevant to Health Maintenance Insurance [facility] [place] [address] [facility] MED[facility] ADV[facility] Advance Directives For more information, please contact: [phone] * Full Code (Latest Code Status on File) Date Activated Date Inactivated Comments 09/25/2021 7:53 AM 09/25/2021 1:16 PM * Full Code Date Activated Date Inactivated Comments 09/25/2021 7:14 AM 09/25/2021 7:53 AM Care Teams Statistical Machine Mechanic Relationship Specialty Start Date End Date Lonny Zamarripa MD [address] [facility] [address] [place] [address] PCP - General 08/21/16 Colby Roldan III, OD [address] [place] [address] Primary Eye Care Provider Optometry 08/22/22
[2025-01-12 09:20] LABS: Alanine Aminotransferase 25 U/L (6-35); Albumin Level 4.2 g/dL (3.5-5.1); Alkaline Phosphatase 114 U/L (38-126); Anion Gap 13 mmol/L (4-12); Aspartate Amino Transferase 34 U/L (14-36); Bilirubin,Total 0.5 mg/dL (0.2-1.3); Blood Urea Nitrogen 12 mg/dL (7-17); Calcium 8.9 mg/dL (8.4-10.2); Carbon Dioxide 17 mmol/L (22-30); Chloride 105 mmol/L (98-107); Estimated CRCL calculation 39 ml/min; Estimated Glomerular Filt Rate 47; Glucose 120 mg/dL (65-110); Lipase 92 U/L (23-300); Potassium 3.5 mmol/L (3.4-5.0); Sodium 135 mmol/L (137-145); Total Protein 7.5 g/dL (6.3-8.2)
--- OUTSIDE RECORDS SUMMARY | 2025-01-12 09:20 | XMS_ITS | Clinical Summary ---
Author Organization [facility] Nahid Begum Address [address] [place] [address] Care Team Providers Care Call Center Trainer Name Role Phone Lonny Zamarripa MD Primary Care Provider [phone] Allergies Active Allergy Reactions Criticality Noted Date [...] Abstract 10/14/2024 11:00 AM CDT Office Visit [facility] Oncology and Hematology [facility] [address] [place] [address] Kenrick Burnett MD Malignant neoplasm of right breast in female, estrogen receptor positive, unspecified site of breast (CMS/HCC) (Primary Dx) 10/13/2024 Orders Only [facility] Oncology and Hematology [facility] [address] [place] [id number] Kenrick Burnett MD from Last 3 Months [...] Description 01/29/2025 9:45 AM CDT Office Visit [facility] Oncology and Hematology - [place] [address] [facility] [address] [place] [address] Kenrick Burnett MD [address] [facility] [address] [place] [address] Health Maintenance Due Date Last [...] Final Result from Last 3 Months Insurance [facility] DUAL COMPLETE PPO DSNP [facility] [id number] Care Teams Call Center Trainer Relationship Specialty Start Date End Date Lonny Zamarripa MD [address] [facility] [address] [place] [address] PCP - General Family Practice 11/13/23
[2025-01-12 11:25] LABS: Add Urine Microscopic? YES; Appearance Urine Clear (Clear); Glucose Urine UA Negative (Negative); Leukocyte Esterase Ur 1+ LEU/UL (Negative); Need Manual Microscopic Reviewed; Nitrate Urine Negative (Negative); Non Pathogenic Casts 0-2; Specific Grav Ur 1.004 (1.001-1.035)
== END 2025-01-12 12:33 | disposition home or self-care (01) ==
PROVIDERS: Emergency Provider Emergency Medicine; PCP Family Medicine
DX: R11.2 Nausea with vomiting, unspecified (principal); I10 Essential (primary) hypertension; E78.00 Pure hypercholesterolemia, unspecified; G47.33 Obstructive sleep apnea (adult) (pediatric); K21.9 Gastro-esophageal reflux disease without esophagitis; M85.80 Other specified disorders of bone density and structure, unspecified site; M17.0 Bilateral primary osteoarthritis of knee; Z85.3 Personal history of malignant neoplasm of breast; Z86.0100 Personal history of colon polyps, unspecified; Z90.710 Acquired absence of both cervix and uterus; Z96.652 Presence of left artificial knee joint; Z98.49 Cataract extraction status, unspecified eye; Z77.22 Contact with and (suspected) exposure to environmental tobacco smoke (acute) (chronic); Z79.899 Other long term (current) drug therapy
CPT/HCPCS: 36415; 80053; 81001; 83690; 85025; 87086; 96361; 96374; 99284; J2405; J7120

== ENCOUNTER 2025-01-14 16:15 | Outpatient (CLI) | payer MEDICARE, SELFPAY ==
--- OUTSIDE RECORDS SUMMARY | 2025-01-14 10:13 | XMS_ITS | Clinical Summary ---
Author Organization [facility] Address [address] [place] [address] Care Team Providers Care Wire Galvanizer Name Role Phone Lonny Zamarripa MD Primary Care Provider Jamar SINHA OD, Colby Da Silva Unavailable [phone] Allergies Active Allergy Reactions Criticality Noted Date [...] (08/04/2021): Added automatically from request for surgery [id number] Personal history of colonic polyps 08/04/2021 Overview (08/04/2021): Added automatically from request for surgery [id number] Encounter for screening colonoscopy 08/04/2021 Overview (08/04/2021): Added automatically from request for surgery [id number] 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 Surgical History Surgery Date Site/Laterality Comments BREAST [...] on file Legal 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 Gender Identity Not on file Sexual Orientation [...] history exists Medical Devices Implanted Type Area Carpenters Supervisor Device Identifier Shelf Expiration Date Model / Serial / Lot Bard Peripheral Vascular Ultraclip Bard 17ga 10cm 2 Trigger Permanent Ultrasound [id number] - [id number] - [id number] Implanted:Qty: 1 on 10/04/2023 by Eloise Pope MD at [facility] Breast Right: Breast Bard Peripheral Vascular 09/09/2025 [id number] / [id number] / [id number] Description:Implanted Right Breast 9:00 area 3 cmfn Procedures Procedure Name Priority Date/Time Associated Diagnosis Comments DEXA AXIAL SKELETON BONE DENSITY 1 OR MORE SITES Schedule Routine, Read Routine (OP Routine) 08/05/2023 2:44 PM CDT Asymptomatic menopausal state from Last 3 Months or Most Recently Relevant to Health Maintenance Results * Dexa Axial Skeleton Bone Density 1 or 2 Site (08/05/2023 2:44 PM CDT) Anatomical Region Laterality Modality Body N/A Other 08/05/2023 7:29 PM CDT Narrative 08/05/2023 7:30 PM CDT EXAM DESCRIPTION: DEXA AXIAL SKELETON BONE DENSITY 1 OR MORE SITES REASON FOR STUDY: 78 y/o year old F with given history of: z78.0 Screening. Postmenopausal Carpenters Supervisor/Model: [employer] (S/N [id number]) CLINICAL INFORMATION: Current height: 64.5 inches Maximum [...] Miguel Carroll M.D. MF: JOHN Report ID: [id number] Reading Location: [place] [address] Procedure Note Miguel Carroll MD - 08/05/2023 EXAM DESCRIPTION: DEXA AXIAL SKELETON BONE DENSITY 1 OR MORE SITES REASON FOR STUDY: 78 y/o year old F with given history of: z78.0 Screening. Postmenopausal Carpenters Supervisor/Model: [employer] Discovery SL (S/N 30537) CLINICAL INFORMATION: Current height: 64.5 inches Maximum [...] Miguel Carroll M.D. MF: JOHN Report ID: [id number] Reading Location: [place] [address] Lonny Zamarripa MD IM DXA PROCEDURES Alma l Result from Last 3 Months or Most Recently Relevant to Health Maintenance Insurance [facility] MEDICARE ADVANTAGE Advance Directives For more information, please contact: [phone] * Full Code (Latest Code Status on File) Date Activated Date Inactivated Comments 09/25/2021 7:53 AM 09/25/2021 1:16 PM * Full Code Date Activated Date Inactivated Comments 09/25/2021 7:14 AM 09/25/2021 7:53 AM Care Teams Wire Galvanizer Relationship Specialty Start Date End Date Lonny Zamarripa MD [address] [place] [address] PCP - General 08/21/16 Colby Roldan III, OD [address] [place] [address] Primary Eye Care Provider Optometry 08/22/22
--- OUTSIDE RECORDS SUMMARY | 2025-01-14 10:13 | XMS_ITS | Clinical Summary ---
Author Organization [facility] Address [facility] [place] [address] Care Team Providers Care Bush And Vine Farmer Fruit Crops Name Role Phone Lonny Zamarripa MD Primary Care Provider [phone] Allergies Active Allergy Reactions Criticality Noted Date [...] 4 (four) times daily. 2 g 3 Active Family History Medical History Relation Comments [...] series) 2018 COVID-19 Vaccine ( - season) 2024 02/13/2021, 06/08/2020, 05/17/2020 Influenza Adult (#1) 2025 01/21/2020, 02/15/2017, 01/03/2015, Additional history exists Meningococcal B Vaccine Aged Out No l onger eligible based on patient's age to complete this topic Meningococcal Vaccine Aged Out No sabino queenie eligible based on patient's age to complete this topic RSV Immunizations Under 20 Months Aged Out No longer eligible based on patient's age to complete this topic Insurance [facility] MEDICARE Care Teams Bush And Vine Farmer Fruit Crops Relationship Specialty Start Date End Date Lonny Zamarripa MD [address] [place] [address] PCP - General FAMILY PRACTICE 07/07/21
--- OUTSIDE RECORDS SUMMARY | 2025-01-14 10:13 | XMS_ITS | Clinical Summary ---
Author Organization [facility] Nahid Begum Address [address] [place] [address] Care Team Providers Care Label Fuser Tender Name Role Phone Lonny Zamarripa MD Primary Care Provider [phone] Allergies Active Allergy Reactions Criticality Noted Date [...] Abstract 10/14/2024 11:00 AM CDT Office Visit [facility] Oncology and Hematology - [place] [address] [facility] [address] [place] [address] Kenrick Burnett MD Malignant neoplasm [...] Description 01/29/2025 9:45 AM CDT Office Visit [facility] Oncology and Hematology - [place] [address] [facility] [address] [place] [address] Kenrick Burnett MD [address] [facility] [address] [place] [address] Health Maintenance Due Date Last Done Comments DTAP/TDAP/TD VACCINES (1 - Tdap) 1962 PNEUMOCOCCAL VACCINE 50+ YEA RS (1 of 1 - PCV) 1993 ZOSTER VACCINE (1 of 2) 1993 RSV VACCINE (60+ or ) (1 - 1-dose 75+ series) 2018 INFLUENZA VACCINE (#1) 2024 OSTEOPOROSIS SCREENING 08/04/2028 , 08/05/2023, 04/03/2021, Additional history exists Insurance [facility] DUAL COMPLETE PPO [facility] [id number] Care Teams Label Fuser Tender Relationship Specialty Start Date End Date Lonny Zamarripa MD [address] [place] [address] PCP - General Family Practice 11/13/23
[2025-01-14 10:37] LABS: Alanine Aminotransferase 24 U/L (6-35); Albumin Level 4.0 g/dL (3.5-5.1); Alkaline Phosphatase 102 U/L (38-126); Anion Gap 9 mmol/L (4-12); Aspartate Amino Transferase 33 U/L (14-36); Bilirubin,Total 0.5 mg/dL (0.2-1.3); Blood Urea Nitrogen 9 mg/dL (7-17); Calcium 9.1 mg/dL (8.4-10.2); Carbon Dioxide 23 mmol/L (22-30); Chloride 106 mmol/L (98-107); Estimated Glomerular Filt Rate 59; Glucose 110 mg/dL (65-110); Potassium 3.7 mmol/L (3.4-5.0); Sodium 138 mmol/L (137-145); Total Protein 7.3 g/dL (6.3-8.2)
[2025-01-14 17:52] LABS: Toxigenic C. Diff NEGATIVE (NEGATIVE)
== END 2025-01-14 16:16 | disposition home or self-care (01) ==
PROVIDERS: PCP Family Medicine
DX: R19.7 Diarrhea, unspecified (principal); N17.9 Acute kidney failure, unspecified
CPT/HCPCS: 36415; 80053; 87045; 87046; 87427; 87493

== ENCOUNTER 2025-01-22 09:34 | Outpatient (CLI) | payer MEDICARE, SELFPAY ==
[2025-01-22 10:05] LABS: Hematocrit 37.3 % (37.0-47.0); Hemoglobin 12.0 g/dL (12.0-15.0); Immature Granulocyte Percent A 0.3 % (0-0.5); Lymphocytes Absolute Auto 1.68 K/mm3 (0.9-3.2); Mean Corpuscular HGB Conc 32.2 g/dl (32-36); Mean Corpuscular Hemoglobin 29.1 pg (26-34); Mean Corpuscular Volume 90.5 fl (80-100); Nucleated Red Blood Cells Absolute Auto 0.000 K/mm3 (0.0-0.012); Nucleated Red Blood Cells Perc 0.0 % (0.0-0.2); Platelet Count Result 425 k/mm3 (150-375); Red Blood Count 4.12 M/mm3 (4.2-5.4); White Blood Count 7.4 K/mm3 (4.5-10.0)
[2025-01-22 14:19] LABS: Anion Gap 9 mmol/L (4-12); Blood Urea Nitrogen 10 mg/dL (7-17); Calcium 9.4 mg/dL (8.4-10.2); Carbon Dioxide 24 mmol/L (22-30); Chloride 106 mmol/L (98-107); Estimated Glomerular Filt Rate > 60; Glucose 99 mg/dL (65-110); Potassium 3.7 mmol/L (3.4-5.0); Sodium 139 mmol/L (137-145)
== END 2025-01-22 09:35 | disposition home or self-care (01) ==
LOC: ANHLAB 09:34
PROVIDERS: PCP Family Medicine; Visit Provider Internal Medicine Hematology & Oncology
DX: C50.911 Malignant neoplasm of unspecified site of right female breast (principal); Z17.0 Estrogen receptor positive status [ER+]
CPT/HCPCS: 36415; 80048; 85025; 86300